=== PATIENT | female | born 1945 | race Caucasian/White ===

== ENCOUNTER → 2016-08-23 | Outpatient (CLI) | payer OTHER ==
[~2016-08-23] MED LIST: ATOR-26 PO; BNC40 PO; CALC-445 PO; DABI150C PO; DILT120C PO; LOSA1TAB PO; LSX/40 PO; NRV5 PO; REGADENOSON 0.4 MG/5 ML SYR ONE; SOTA120T PO
--- NOTE | 2016-08-23 22:09 | MYOCARDIAL PERFUSION SCAN ---
TIME: 1955 p.m. ORDERING PHYSICIAN: Dr. Peña. PRIMARY CARE PHYSICIAN: Dr. Adan Joshua. PROCEDURE: 1. Myocardial perfusion study performed in multiple views/images. 2. Lexiscan stress ECG. INDICATIONS: 1. Chest pain. 2. Dyspnea on exertion. 3. Atrial fibrillation. CONSENT: Informed written consent was obtained. DATE OF PROCEDURE: 08/23/2016. PROCEDURAL DETAILS: For the stress portion of the study, Lexiscan 0.4 mg was intravenously administered over 10-15 seconds followed by a saline flush. This was followed by 32.8 mCi of technetium-99m Cardiolite injected intravenously at 1340 p.m. on 08/23/2016. Thirty minutes following the injection, imaging of the heart was performed in multiple projections. For the rest portion of the study, 11 mCi of technetium-99m Cardiolite was injected intravenously at 11:30 a.m. on the same day. One hour following the injection, imaging of the heart was performed in the same projections. ELECTROCARDIOGRAM AND VITALS: Resting ECG demonstrated normal sinus rhythm at 63 beats per minute. Incomplete right bundle-branch block. Lexiscan ECG demonstrated no significant ST changes. No arrhythmia. There was Lexiscan-induced shortness of breath. No chest pain reported. Maximum heart rate was 99 beats per minute, representing 66% maximum predicted heart rate. Resting blood pressure was 165/89 mmHg, which was also the maximum blood pressure. FINDINGS: Rotating raw imaging demonstrated no significant motion artifact. There was no significant lung uptake. Heart size appeared normal. Myocardial perfusion was normal without a significant reversible or fixed defect. Ejection fraction was 84%. Wall motion was normal. There was no significant transient ischemic dilation. IMPRESSION: 1. No significant ischemic changes or evidence of prior infarct. 2. No chest pain. 3. Non-diagnostic Lexiscan electrocardiogram. 4. Normal wall motion. 5. Hyperdynamic left ventricular systolic function with an EF of 84%.
== END | disposition home or self-care (01) ==
LOC: C.NUCL 10:49
PROVIDERS: ATTEND Internal Medicine Cardiovascular Disease
DX: I48.91 Unspecified atrial fibrillation (principal); R07.89 Other chest pain; R06.09 Other forms of dyspnea

== ENCOUNTER → 2016-09-04 | Outpatient (CLI) | payer OTHER ==
[~2016-09-04] MED LIST changes: -REGADENOSON 0.4 MG/5 ML SYR ONE
[2016-09-04 13:10] LABS: BASO % 0.5 %; BASO ABS # 0.03 K/uL (0-0.2); COMPLETE YES; EOS % 4.5 %; HEMATOCRIT 40.2 % (37-47); IG% 0.5 %; LYMPH % 31.6 %; LYMPH ABS # 1.74 K/uL (1.2-3.4); MEAN CORPUSCULAR HEMOGLOBIN 28.1 pg (25-34); MEAN CORPUSCULAR HGB CONC 33.1 g/dl (32-36); MEAN PLATELET VOLUME 9.7 fL (7.4-10.4); MONO % 7.4 %; NEUT % 55.5 %; PLATELET COUNT 278 K/uL (130-400); RED BLOOD COUNT 4.73 M/uL (4.2-5.4); WHITE BLOOD COUNT 5.51 K/uL (4.8-10.8)
[2016-09-04 13:45] LABS: AST/SGOT 19 U/L (15-37); BLOOD UREA NITROGEN 9 mg/dl (7-18); CALCIUM 9.1 mg/dl (8.5-10.1); CARBON DIOXIDE 29 mmol/L (21-32); CHLORIDE 105 mmol/L (98-107); CREATININE 0.61 mg/dl (0.60-1.20); GLUCOSE 93 mg/dl (70-99); HDL CHOLESTEROL 50 mg/dl; POTASSIUM 4.6 mmol/L (3.5-5.1); SODIUM 141 mmol/L (136-145)
[2016-09-04 13:58] LABS: ALT/SGPT 20 U/L (12-78); CHOLESTEROL 129 mg/dl (0-200); CHOLESTEROL/HDL RATIO 2.6; LDL CHOLESTEROL CALCULATED 60 mg/dl; TRIGLYCERIDES 96 mg/dl (0-150); VERY LOW DENSITY LIPOPROT CALC 19 mg/dl
== END | disposition home or self-care (01) ==
LOC: C.LABMFLN 07:48
PROVIDERS: ATTEND Family Medicine
DX: I48.91 Unspecified atrial fibrillation (principal); I10 Essential (primary) hypertension; E78.5 Hyperlipidemia, unspecified; G47.30 Sleep apnea, unspecified

== ENCOUNTER → 2017-03-13 | Outpatient (CLI) | payer OTHER ==
[2017-03-13 13:27] LABS: BASO % 0.4 %; BASO ABS # 0.02 K/uL (0-0.2); COMPLETE YES; EOS % 4.9 %; HEMATOCRIT 41.3 % (37-47); IG% 0.6 %; LYMPH ABS # 1.75 K/uL (1.2-3.4); MEAN CELL VOLUME 88.4 fL (80-100); MEAN CORPUSCULAR HGB CONC 30.5 g/dl (32-36); MEAN PLATELET VOLUME 9.8 fL (7.4-10.4); MONO % 7.9 %; NEUT % 53.2 %; PLATELET COUNT 343 K/uL (130-400); RED BLOOD COUNT 4.67 M/uL (4.2-5.4); WHITE BLOOD COUNT 5.31 K/uL (4.8-10.8)
[2017-03-13 15:21] LABS: ALT/SGPT 25 U/L (12-78); AST/SGOT 22 U/L (15-37); BLOOD UREA NITROGEN 8 mg/dl (7-18); BUN/CREATININE RATIO 11.1 (10-20); CALCIUM 9.3 mg/dl (8.5-10.1); CARBON DIOXIDE 30 mmol/L (21-32); CHLORIDE 106 mmol/L (98-107); CHOLESTEROL 143 mg/dl (0-200); CHOLESTEROL/HDL RATIO 3.9; CREATININE 0.73 mg/dl (0.60-1.20); GLUCOSE 104 mg/dl (70-99); HDL CHOLESTEROL 37 mg/dl; LDL CHOLESTEROL CALCULATED 76 mg/dl; POTASSIUM 4.8 mmol/L (3.5-5.1); SODIUM 140 mmol/L (136-145); TOTAL IRON BINDING CAPACITY 322 mcg/dl (250-450); TRIGLYCERIDES 150 mg/dl (0-150); VERY LOW DENSITY LIPOPROT CALC 30 mg/dl
--- NOTE | 2017-03-21 11:30 | CODING QUERY MEDICAL NECESSITY ---
SUPPORTING DIAGNOSIS NEEDED Dr. Joshua, A supporting diagnosis is required for the test/procedure performed on this patient in order for us to be reimbursed by the patient's insurance. Please provide a supporting diagnosis for the following test/procedure listed below next to the test name along with your signature. *If there is no additional diagnosis for this patient that would support the following test/procedure please document that below next to the test/procedure. Test(s)/Procedure(s) that require a supporting diagnosis: * ([id number]) B12 VITAMIN LEVEL DIAGNOSIS: * ([id number]) FOLATE LEVEL DIAGNOSIS: DATE OF SERVICE: 03/13/17 Provider Signature: Date: Thank you Jairo Archibald [facility] Information Management Once completed, please kindly fax back to [phone] For questions please call [phone]
== END | disposition home or self-care (01) ==
LOC: C.LABMFLN 11:17
PROVIDERS: ATTEND Family Medicine
DX: E78.5 Hyperlipidemia, unspecified (principal); I10 Essential (primary) hypertension; D50.9 Iron deficiency anemia, unspecified

== ENCOUNTER → 2017-08-04 | Outpatient (CLI) | payer OTHER ==
[2017-08-04 12:49] LABS: BASO % 0.2 %; BASO ABS # 0.02 K/uL (0-0.2); EOS % 1.5 %; EOS ABS # 0.16 K/uL (0-0.5); HEMATOCRIT 41.1 % (37-47); HEMOGLOBIN 13.3 g/dL (12.0-16.0); IG# 0.15 K/uL (0.00-0.02); LYMPH % 39.5 %; LYMPH ABS # 4.12 K/uL (1.2-3.4); MEAN CELL VOLUME 86.7 fL (80-100); MEAN CORPUSCULAR HEMOGLOBIN 28.1 pg (25-34); MEAN CORPUSCULAR HGB CONC 32.4 g/dl (32-36); MEAN PLATELET VOLUME 9.9 fL (7.4-10.4); MONO % 7.1 %; MONO ABS # 0.74 K/uL (0.11-0.59); NEUT % 50.3 %; NEUT ABS # 5.25 K/uL (1.4-6.5); PLATELET COUNT 436 K/uL (130-400); RED CELL DISTRIBUTION WIDTH CV 13.3 % (11.5-14.5); RED CELL DISTRIBUTION WIDTH SD 42.4 fL (36.4-46.3); WHITE BLOOD COUNT 10.44 K/uL (4.8-10.8)
[2017-08-04 13:26] LABS: ALT/SGPT 20 U/L (12-78); AST/SGOT 15 U/L (15-37); BLOOD UREA NITROGEN 13 mg/dl (7-18); CARBON DIOXIDE 32 mmol/L (21-32); CHOLESTEROL 133 mg/dl (0-200); GLUCOSE 96 mg/dl (70-99); POTASSIUM 4.1 mmol/L (3.5-5.1); SODIUM 139 mmol/L (136-145)
[2017-08-04 13:29] LABS: LDL CHOLESTEROL CALCULATED 54 mg/dl
== END | disposition home or self-care (01) ==
LOC: C.LABMFLN 09:51
PROVIDERS: ATTEND Family Medicine
DX: I48.91 Unspecified atrial fibrillation (principal); I10 Essential (primary) hypertension; E78.5 Hyperlipidemia, unspecified; D50.9 Iron deficiency anemia, unspecified

== ENCOUNTER → 2017-10-09 | Outpatient (CLI) | payer OTHER ==
[~2017-10-09] MED LIST changes: +DILT-213 PO; -DILT120C PO
[2017-10-09 17:54] LABS: BASO % 0.6 %; BASO ABS # 0.04 K/uL (0-0.2); EOS % 3.8 %; EOS ABS # 0.26 K/uL (0-0.5); HEMATOCRIT 45.1 % (37-47); HEMOGLOBIN 14.7 g/dL (12.0-16.0); IG# 0.03 K/uL (0.00-0.02); LYMPH % 24.2 %; LYMPH ABS # 1.66 K/uL (1.2-3.4); MEAN CELL VOLUME 88.6 fL (80-100); MEAN CORPUSCULAR HEMOGLOBIN 28.9 pg (25-34); MEAN CORPUSCULAR HGB CONC 32.6 g/dl (32-36); MEAN PLATELET VOLUME 10.5 fL (7.4-10.4); MONO % 5.4 %; MONO ABS # 0.37 K/uL (0.11-0.59); NEUT % 65.6 %; NEUT ABS # 4.49 K/uL (1.4-6.5); PLATELET COUNT 377 K/uL (130-400); RED CELL DISTRIBUTION WIDTH CV 13.6 % (11.5-14.5); RED CELL DISTRIBUTION WIDTH SD 44.2 fL (36.4-46.3); WHITE BLOOD COUNT 6.85 K/uL (4.8-10.8)
[2017-10-09 18:22] LABS: BLOOD UREA NITROGEN 9 mg/dl (7-18); CALCIUM 9.3 mg/dl (8.5-10.1); CARBON DIOXIDE 30 mmol/L (21-32); CREATININE 0.68 mg/dl (0.60-1.20); GLUCOSE 99 mg/dl (70-99); POTASSIUM 4.4 mmol/L (3.5-5.1); SODIUM 140 mmol/L (136-145)
== END | disposition home or self-care (01) ==
LOC: C.LABMFLN 11:44
PROVIDERS: ATTEND Family Medicine
DX: I10 Essential (primary) hypertension (principal); R06.00 Dyspnea, unspecified; R07.89 Other chest pain

== ENCOUNTER → 2017-10-31 | Outpatient (CLI) | payer OTHER ==
[~2017-10-31] MED LIST changes: +REGADENOSON 0.4 MG/5 ML SYR ONE
--- NOTE | 2017-10-31 10:25 | DIAGNOSTIC IMAGING REPORT ---
CT OF THE CHEST WITHOUT IV CONTRAST CLINICAL HISTORY: Lung nodule. Abnormal chest radiograph. Dyspnea. Coronary artery disease. COMPARISON STUDY: Chest radiograph July 11, 2015. CT DOSE: 590.33 mGycm TECHNIQUE: Axial images of the chest were obtained without IV contrast. Images were reviewed in the axial, sagittal, and coronal planes. IV contrast was not administered for this examination. A dose lowering technique was utilized adhering to the principles of ALARA. FINDINGS: No enlarged axillary, mediastinal or hilar lymph nodes are present. The heart is mildly enlarged. There is extensive coronary artery calcification. Note is made of moderate dilatation of the central pulmonary arteries with the main pulmonary artery measuring 3.5 cm. Central airways are patent. Linear opacities within the lungs favor atelectasis. There is no consolidation to suggest pneumonia. There is no pneumothorax or pleural effusion. There is a small fat-containing right-sided Bochdalek hernia. Bony thorax is unremarkable. There is mild scarring within the midpole of the left kidney. There may be a duplicated left collecting system. There is slight prominence of the left upper renal collecting system without heber hydronephrosis. A few diverticula if the second duodenum are noted. IMPRESSION: 1. Moderate dilatation of the central pulmonary arteries which suggests pulmonary arterial hypertension. 2. Mild cardiomegaly and extensive coronary artery calcification. 3. Linear opacities suggestive of atelectasis. No acute intrathoracic findings. Electronically signed by: Jaime Gregory M.D. 10/31/2017 10:24 AM Dictated Date/Time: 10/31/2017 10:16 AM
--- NOTE | 2017-11-03 10:07 | MYOCARDIAL PERFUSION SCAN ---
ONE-DAY NUCLEAR MEDICINE TECHNETIUM-99M CARDIOLITE MYOCARDIAL PERFUSION SCAN CLINICAL HISTORY: The patient has a history of nonobstructive coronary artery disease and has been experiencing progressive exertional dyspnea. COMPARISON: None. TECHNIQUE: For the stress portion of the study, 31.2 mCi of Technetium 99 m Cardiolite IV was injected at 1:25 p.m. on 10/31/2017. Thirty minutes following the injection, imaging of the heart was performed in multiple projection. For the rest portion of the study, 10.8 mCi of a Technetium 99 m Cardiolite was injected IV at 11:15 a.m. One hour following the injection, imaging of the heart was performed in the same projections. For the stress portion of the study, 0.4 mg of Lexiscan was injected intravenously as per protocol. The patient did not experience chest discomfort. Baseline EKG noted sinus rhythm with a left axis deviation. There were no ST segment changes seen during the infusion. Following the study, patient was hemodynamically stable without complaints. FINDINGS: The short axis, vertical long axis, horizontal long axis images were reviewed in detail. There is normal tracer uptake at both stress and rest. This excludes a prior myocardial infarction and evidence of stress-induced myocardial ischemia. The left ventricle demonstrates hyperdynamic systolic function with an ejection fraction of greater than 70%. There are no wall motion abnormalities. IMPRESSION: 1. No scintigraphic evidence of a prior myocardial infarction or stress-induced myocardial ischemia. 2. No Lexiscan-induced chest pain. 3. No Lexiscan-induced EKG change 4. Hyperdynamic left ventricular ejection fraction of greater than 70%. No wall motion abnormalities.
== END | disposition home or self-care (01) ==
LOC: C.CTS 09:50
PROVIDERS: ATTEND Family Medicine
DX: R91.1 Solitary pulmonary nodule (principal); I25.10 Atherosclerotic heart disease of native coronary artery without angina pectoris; R06.00 Dyspnea, unspecified

== ENCOUNTER → 2017-12-01 | Outpatient (CLI) | payer OTHER ==
[~2017-12-01] MED LIST changes: -REGADENOSON 0.4 MG/5 ML SYR ONE
[2017-12-01 19:26] LABS: BLOOD UREA NITROGEN 9 mg/dl (7-18); CALCIUM 8.9 mg/dl (8.5-10.1); CARBON DIOXIDE 31 mmol/L (21-32); CREATININE 0.76 mg/dl (0.60-1.20); GLUCOSE 98 mg/dl (70-99); POTASSIUM 4.7 mmol/L (3.5-5.1); SODIUM 139 mmol/L (136-145)
== END | disposition home or self-care (01) ==
LOC: C.LABMFLN 13:54
PROVIDERS: ATTEND Family Medicine
DX: I10 Essential (primary) hypertension (principal)

== ENCOUNTER 2019-01-11 02:16 | Inpatient (IN) ==
[2019-01-11 03:59] LABS: Basophils # (auto) 0.01 K/uL (0-0.2); Basophils % (auto) 0.1 %; Eosinophils # (auto) 0.12 K/uL (0-0.5); Eosinophils % (auto) 0.9 %; Hemoglobin 12.3 g/dL (12.0-16.0); Immature Granulocytes # (auto) 0.07 K/uL (0.00-0.02); Immature Granulocytes % (auto) 0.5 %; Lymphocytes # (auto) 0.98 K/uL (1.2-3.4); Lymphocytes % (auto) 7.2 %; Mean Corpuscular Hgb Conc 33.2 g/dL (32-36); Mean Corpuscular Volume 85.3 fL (80-100); Mean Platelet Volume 9.6 fL (7.4-10.4); Monocytes # (auto) 0.65 K/uL (0.11-0.59); Monocytes % (auto) 4.8 %; Neutrophils # (auto) 11.83 K/uL (1.4-6.5); Neutrophils % (auto) 86.5 %; Platelet Count 288 K/uL (130-400); RDW Coefficient of Variation 13.3 % (11.5-14.5); RDW Standard Deviation 41.2 fL (36.4-46.3); Red Blood Count 4.34 M/uL (4.2-5.4); White Blood Count 13.66 K/uL (4.8-10.8)
[2019-01-11 04:18] LABS: Calcium 8.4 mg/dl (8.5-10.1); Creatinine Clr Calc Pharmacy 57.1 ml/min; Est GFR (African American) 96.3; Est GFR (Non-African American) 83.1; Potassium 3.9 mmol/L (3.5-5.1)
[2019-01-11 04:36] LABS: INR 1.1 (0.9-1.1); Partial Thromboplastin Ratio 1.4; Partial Thromboplastin Time 37.4 Seconds (21.0-31.0); Prothrombin Time 11.4 Seconds (9.0-12.0)
[2019-01-11] MEDS ORDERED: DESMOPRESSIN ACETATE 13 MCG in SODIUM CHLORIDE 0.9% 50 ML IV SCH (06:00)
--- NOTE | 2019-01-11 06:03 | History & Physical Report ---
Date of Service January 11, 2019 Assessment & Plan (1) Rectal bleed: Constipation/persistent rectal bleeding status post manual disimpaction by patient/on Pradaxa- N.p.o. except essential medications NSS + KCl 20 mEq 100 mils per hour. H&H every 6 hours for the next 24 hours. Giving DDAVP IV x1. Consult general surgery Dr. Hall, who was contacted by the ED already. Patient reports having a similar type of bleeding, but not as bad as this time, several years ago, that she went surgery for hemorrhoids with Dr. Saul. Present on Admission?: Yes (2) Constipation: We will more aggressively work on constipation once the rectal bleeding has been controlled. Present on Admission?: Yes (3) Anticoagulant long-term use: Holding Pradaxa. Given DDAVP. Present on Admission?: Yes (4) CAD (coronary artery disease), [place] coronary artery: CAD/hypertension/atrial fibrillation- Recent cardiac catheterization did not show any need for intervention. Continue sotalol 100 mg p.o. twice daily. Hold irbesartan, diltiazem HCl p.o. and Pradaxa. Cardizem 10 mg IV every 4 hours as needed for heart rate greater than 110 or systolic blood pressure greater than 160. Present on Admission?: Yes (5) Atrial fibrillation: See above Present on Admission?: Yes (6) Hyperlipidemia LDL goal <70: On problem list, but not currently on medication. Present on Admission?: Yes (7) Pulmonary hypertension: On no overt treatment. Present on Admission?: Yes History of Present Illness Chief Complaint: The patient presents to the emergency department after approximately 8-1/2 hours of rectal bleeding after she tried to manually disimpact herself while on the commode around 9:00 this evening. Primary Care Provider: Adan Joshua MD The patient is a 73-year-old female with a past medical history including atrial fibrillation, CAD in [place] artery, pulmonary hypertension, dyspnea, hyperlipidemia, hypertension, CHF, osteoarthritis and previous history of rectal bleeding due to hemorrhoids, presents to the emergency department with approximately 8 hours of rectal bleeding after she tried to manually disimpact herself with fingers with sharp fingernails on the edge. She continues to have bright red blood independent of bowel movements. She reports having had general surgeon Dr. Saul perform surgery on bleeding hemorrhoids a few years ago. She just underwent a cardiac catheterization 3 days ago, which was normal. She is on Pradaxa 150 mg p.o. twice daily for long-term anticoagulation for atrial fibrillation. Allergies Allergy/AdvReac Type Severity Reaction Status Date / Time clarithromycin [From Biaxin] Allergy Unknown Verified 01/11/19 05:07 hydrochlorothiazide Allergy Unknown Verified 01/11/19 05:07 [From Prinzide] lisinopril [From Prinzide] Allergy Unknown Verified 01/11/19 05:07 Home Medications Home Medications Medication Instructions Recorded Confirmed Type diltiazem HCl 300 mg PO QAM #0 07/11/15 01/11/19 History Osteo Bi-Flex Triple Strength 1 tab PO BID 01/07/19 01/11/19 History cholecalciferol (vitamin D3) 1,000 unit PO DAILY 01/07/19 01/11/19 History [Vitamin D3] irbesartan 300 mg PO QAM 01/07/19 01/11/19 History nitroglycerin [Nitrostat] 0.4 mg SUBLINGUAL DIRECTED 01/07/19 01/11/19 History calcium carbonate-vitamin D3 1 tab PO DAILY 01/11/19 01/11/19 History [Calcium 600 + D(3)] dabigatran etexilate [Pradaxa] 150 mg PO AMPM 01/11/19 01/11/19 History furosemide [Lasix] 60 mg PO QAM 01/11/19 01/11/19 History sotalol 120 mg PO AMPM 01/11/19 01/11/19 History Past Med/Surg History Medical History Chest pain Family History Other No significant family history Social History Beliefs That Will Affect Care: None Current Living Situation: Spouse Feels Safe at Home: Yes Smoking Status: Never smoker Hx Alcohol Use: No Hx Substance Use: No Review of Systems Review of Systems: The patient denies chest pain, palpitations, shortness of breath, dyspnea on exertion, cough, lower extremity swelling, sore throat, fevers, chills, sweats, weight change, fatigue, nausea, vomiting, diarrhea , constipation, abdominal pain, pelvic pain, blood in urine, dysuria, urinary frequency or urgency, lightheadedness, dizziness, headache, memory loss, loss of consciousness, rash, imbalance, focal or generalized weakness, numbness or tingling in arms or legs, generalized arthralgias or myalgias, back or neck pain, or night sweats. The review of systems is otherwise negative other than for that already noted above, and at least 10 systems have been reviewed. Physical Exam Physical Exam: The patient is awake, alert and oriented 3, well developed and well nourished, normocephalic and atraumatic, lying in bed and in no acute distress. HEENT--PERRL, EOMI, mucous membranes and oropharynx dry. Neck--supple. No JVD. No bruits. Thyroid normal, trachea midline, no adenopathy. Heart--normal S1 and S2. No murmurs, rubs or gallops. Lungs--clear bilaterally, no respiratory distress, no accessory muscle use. Abdomen--normal bowel sounds and soft. Nontender. Mildly distended but soft. Extremities--no cyanosis or clubbing. No edema. There are good distal pulses b/l. Dermatologic--normal skin turgor, normal color, no abnormal lymph nodes, no rash. Neurologic--cranial nerves II through XII grossly intact. Rheumatologic--normal range of motion. Psychiatric--normal affect. Results & Data Vital Signs (Past 12 Hours) Vital Signs Temp Pulse Pulse Resp BP BP Pulse Ox 01/11/19 05:52 90 18 143/85 H 94 01/11/19 03:57 83 18 115/100 93 01/11/19 02:20 98.4 F 94 H 16 148/84 H 94 Laboratory Results Laboratory Results WBC 13.66 K/uL (4.8-10.8) H 01/11/19 03:50 RBC 4.34 M/uL (4.2-5.4) 01/11/19 03:50 Hgb 12.3 g/dL (12.0-16.0) 01/11/19 03:50 Hct 37.0 % (37-47) 01/11/19 03:50 MCV 85.3 fL (80-100) 01/11/19 03:50 MCH 28.3 pg (25-34) 01/11/19 03:50 MCHC 33.2 g/dL (32-36) 01/11/19 03:50 RDW Std Deviation 41.2 fL (36.4-46.3) 01/11/19 03:50 RDW Coeff of Emiliano 13.3 % (11.5-14.5) 01/11/19 03:50 Plt Count 288 K/uL (130-400) 01/11/19 03:50 MPV 9.6 fL (7.4-10.4) 01/11/19 03:50 Immature Gran % (Auto) 0.5 % 01/11/19 03:50 Neut % (Auto) 86.5 % 01/11/19 03:50 Lymph % (Auto) 7.2 % 01/11/19 03:50 Dodge % (Auto) 4.8 % 01/11/19 03:50 Eos % (Auto) 0.9 % 01/11/19 03:50 Baso % (Auto) 0.1 % 01/11/19 03:50 Immature Gran # (Auto) 0.07 K/uL (0.00-0.02) H 01/11/19 03:50 Neut # (Auto) 11.83 K/uL (1.4-6.5) H 01/11/19 03:50 Lymph # (Auto) 0.98 K/uL (1.2-3.4) L 01/11/19 03:50 Dodge # (Auto) 0.65 K/uL (0.11-0.59) H 01/11/19 03:50 Eos # (Auto) 0.12 K/uL (0-0.5) 01/11/19 03:50 Baso # (Auto) 0.01 K/uL (0-0.2) 01/11/19 03:50 PT 11.4 Seconds (9.0-12.0) 01/11/19 04:14 INR 1.1 (0.9-1.1) 01/11/19 04:14 APTT 37.4 Seconds (21.0-31.0) H 01/11/19 04:14 PTT Ratio 1.4 01/11/19 04:14 Sodium 137 mmol/L (136-145) 01/11/19 03:50 Potassium 3.9 mmol/L (3.5-5.1) 01/11/19 03:50 Chloride 103 mmol/L (98-107) 01/11/19 03:50 Carbon Dioxide 26 mmol/L (21-32) 01/11/19 03:50 Anion Gap 8.0 (3-11) 01/11/19 03:50 BUN 17 mg/dl (7-18) 01/11/19 03:50 Creatinine 0.72 mg/dl (0.6-1.2) 01/11/19 03:50 Est Cr Clr Drug Dosing 57.1 ml/min 01/11/19 03:50 Est GFR ( Amer) 96.3 01/11/19 03:50 Est GFR (Non-Af Amer) 83.1 01/11/19 03:50 BUN/Creatinine Ratio 24.0 (10-20) H 01/11/19 03:50 Glucose 123 mg/dl (70-99) H 01/11/19 03:50 Calcium 8.4 mg/dl (8.5-10.1) L 01/11/19 03:50 Code Status & VTE Plan Code Status Full code VTE Prophylaxis Plan VTE Prophylaxis will be ordered: Yes PG Care Time/CCT Total # of Minutes Spent Total Time Spent with Patient: Total time spent is greater than 50% in coordination of care (as documented) at patient's floor/unit and/or counseling patient: (1) Constipation Constipation type: unspecified constipation type Qualified Code(s): K59.00 - Constipation, unspecified
--- NOTE | 2019-01-11 06:11 | Emergency Department Note ---
Entered by Melo Mcclelland acting as a scribe for Enrico Oh MD ED Provider Note Name: Lakia Richardson Age: 73, female Arrives Via: Walk in Informant: Patient CC: Constipation HPI: The patient is a 73 year old female who presents to the emergency department with complaints of constant constipation beginning two days ago. The patient states that she had a cardiac catheterization procedure done two days ago. She notes that she has been constipated since. She reports that she tried using her fingers to break up the stool at 2100 yesterday, and she states that she has been bleeding since. She also complains of abdominal pain. She denies any nausea, vomiting, and urinary symptoms. She notes that she is on Pridaxa. ROS: See above HPI for pertinent positives & negatives. A total of 10 systems reviewed and were otherwise negative. Past Medical History: None Past Surgical History: Cardiac catheterization Family History: No significant family history Social History: Lives with spouse, never smoker, does not drink alcohol, does not use drugs Home Medications: Please see medication list Allergies: Clarithromycin, hydrochlorothiazide, lisinopril Physical: Vitals: BP 115/100, Pulse 83, Resp 18, Temp 98.4 F, O2 Sat 93 Exam: GENERAL: Patient is well appearing and in no acute distress. EYES: No scleral icterus, unremarkable pupils. ENT: Mucous membranes moist, no nasal congestion. NECK: No masses appreciated, no meningismus, trachea is midline. RESPIRATORY: No dyspnea. Clear to auscultation and equal bilaterally. No wheeze, no rhonchi. CARDIOVASCULAR: Regular rate and rhythm. No murmurs, rubs, gallops appreciated. GASTROINTESTINAL: Abdomen soft, non-tender, no peritonitis. No masses appreciated. Mildly distended abdomen. Hypoactive bowel sounds. BACK: No midline tenderness, no CVA tenderness RECTAL: Small towel wedged between butt cheeks that is soaked in blood which when removed revealed large nontender hemorrhoids externally, normal rectal tone, when area is cleaned there is continuous bleeding from the rectum without a clear laceration able to be visualized, I removed a grapefruit sized amount of stool which was brown streaked with a large amount of red blood. EXTREMITIES: Normal motion all extremities, no cyanosis. 3+ edema to the bilateral legs. NEUROLOGIC: Alert and oriented, no acute motor or sensory deficits, no focal weakness, cranial nerves grossly intact. SKIN: No rash, no jaundice, no diaphoresis. ED Course: Prior Medical Record, Triage/Nursing Notes, Medications, Allergies reviewed by Me 0230: The patient was evaluated in room A3. A complete history and physical exam was performed. 0410: Nursing is attempting to collect the patient's labs. She was a difficult stick but she does have an IV. 0432: I reevaluated and updated the patient. She had a large bowel movement and filled the toilet with blood. She is still having some bleeding but is hemodynamically stable. 0438: I discussed the patient's case with Branden Hernandez. He suggests discussing the patient's case with general surgery. 0443: I discussed the patient's case [place] Dr. Isabel Flaherty [facility] He suggests bringing the patient into medicine and treating her as a GI bleed. 0536: Upon reevaluation, the patient is stable. I discussed the findings and the treatment plan with the patient. She expresses agreement and understanding. I spoke with Dr. Chowdhury of the [facility]. The patient will be evaluated for further management. Vital Signs: reviewed and remarkable for wnl Labs: Reviewed and remarkable for Hgb 12 down from 14 2 weeks ago. Interventions: saline lock Imaging: X ray results are stated below per my interpretation: KUB: 1 view: Diffuse constipation, no overt obstruction. Consults: 0438: I discussed the patient's case with Branden Hernandez. He suggests discussing the patient's case with general surgery. 0443: I discussed the patient's case with Dr. Isabel Flaherty [facility]. He suggests bringing the patient into medicine and treating her as a GI bleed. 0536: I reviewed the patient's case with Dr. Chowdhury - Hospitalist [facility] He will evaluate the patient for further management. Blood pressure: Normal. No Referral necessary Disposition: hospitalization. Differentials: Differential: Hemorrhoidal bleeding, rectal laceration, Diverticulitis, AVM, Coagulopathy, Colitis, Malignancy, Upper GI bleed, Fissure, amongst other pathologies entertained. Medical Decision Makin yr old female who is on Pradaxa and has been constipated over the last few days. She recently had her nails done and thus when she tried to manually dis- impact herself she appears to have lacerated something, suspect an internal hemorrhoid given the number/size of external hemorrhoids she has and exam findings. No evidence of bowel perforation at this time. She has brown stool thus I doubt upper GI source and without other symptoms unlikely diverticulitis, though this could be low diverticular bleed as well. Stool with bleeding on multiple BMs (which she is now having given fecal impaction resolved). On exam she has mild continuous bleeding but is not exsaunginatng. Vitals stable. Reviewed with GI, then Gen Surg and agree with coming in for further monitoring, hold Pradaxa and if continued or worsening anemia will need intervention further. Hospitalist down to evaluate further. Impression: Rectal bleed, constipation, anticoagulant use Enrico Oh MD The scribe's documentation has been prepared under my direction and personally reviewed by me in its entirety. I confirm that the note above accurately reflects all work, treatment, procedures, and medical decision making performed by me. Impression & Plan Rectal bleed, Constipation, Anticoagulant long-term use Past Med/Surg History Medical History Chest pain Family History Other No significant family history Social History Beliefs That Will Affect Care: None Current Living Situation: Spouse Feels Safe at Home: Yes Smoking Status: Never smoker Hx Alcohol Use: No Hx Substance Use: No Results & Data Vital Signs Vital Signs - 24 hr 01/11/19 02:20 01/11/19 03:57 01/11/19 05:52 Temperature 36.9 C Temperature Source Oral Sepsis Recent Fever Within 48 Hours No Sepsis New/Unexplained Change in Mental Status No Sepsis Action Taken by Nursing No Action Required Pulse Rate 94 H Pulse Rate [Finger] 83 90 Respiratory Rate 16 18 18 Blood Pressure 148/84 H Blood Pressure [Left Arm] 115/100 143/85 H Blood Pressure Mean 105 Blood Pressure Mean [Left Arm] 105 104 Blood Pressure Position Sitting Pulse Oximetry 94 93 94 Oxygen Delivery Method Room Air Room Air Room Air Home Medications Current Medication List: was personally reviewed by me Laboratory Data Attestation: I reviewed the patient's lab results. Result diagrams: 01/11/19 03:50 01/11/19 03:50 Lab Results 01/11/19 01/11/19 01/11/19 Range/Units 03:50 03:50 04:14 WBC 13.66 H (4.8-10.8) K/uL RBC 4.34 (4.2-5.4) M/uL Hgb 12.3 (12.0-16.0) g/dL Hct 37.0 (37-47) % MCV 85.3 (80-100) fL MCH 28.3 (25-34) pg MCHC 33.2 (32-36) g/dL RDW Std Deviation 41.2 (36.4-46.3) fL RDW Coeff of Emiliano 13.3 (11.5-14.5) % Plt Count 288 (130-400) K/uL MPV 9.6 (7.4-10.4) fL Immature Gran % (Auto) 0.5 % Neut % (Auto) 86.5 % Lymph % (Auto) 7.2 % Bertie % (Auto) 4.8 % Eos % (Auto) 0.9 % Baso % (Auto) 0.1 % Immature Gran # (Auto) 0.07 H (0.00-0.02) K/uL Neut # (Auto) 11.83 H (1.4-6.5) K/uL Lymph # (Auto) 0.98 L (1.2-3.4) K/uL Bertie # (Auto) 0.65 H (0.11-0.59) K/uL Eos # (Auto) 0.12 (0-0.5) K/uL Baso # (Auto) 0.01 (0-0.2) K/uL PT 11.4 (9.0-12.0) Seconds INR 1.1 (0.9-1.1) APTT 37.4 H (21.0-31.0) Seconds PTT Ratio 1.4 Sodium 137 (136-145) mmol/L Potassium 3.9 (3.5-5.1) mmol/L Chloride 103 (98-107) mmol/L Carbon Dioxide 26 (21-32) mmol/L Anion Gap 8.0 (3-11) BUN 17 (7-18) mg/dl Creatinine 0.72 (0.6-1.2) mg/dl Est Cr Clr Drug Dosing 57.1 ml/min Est GFR ( Amer) 96.3 Est GFR (Non-Af Amer) 83.1 BUN/Creatinine Ratio 24.0 H (10-20) Glucose 123 H (70-99) mg/dl Calcium 8.4 L (8.5-10.1) mg/dl Discharge Plan Visit Data Chief Complaint: Constipation Stated Complaint: CONSTIPATED ED Provider: Enrico Oh Discharge Problem: Rectal bleed, Constipation, Anticoagulant long-term use Patient Disposition: Being Evaluated by Hospitalist Forms Stand Alone Forms: My [facility] Prescriptions Prescriptions: No Action diltiazem HCl 300 mg Capsule,Extended Release 24 Hr 300 mg PO QAM Qty: 0 RF: 3 nitroglycerin [Nitrostat] 0.4 mg Tablet, Sublingual 0.4 mg sublingual DIRECTED RF: 0 irbesartan 300 mg Tablet 300 mg PO QAM RF: 0 cholecalciferol (vitamin D3) [Vitamin D3] 1,000 unit Capsule 1,000 unit PO DAILY RF: 0 Osteo Bi-Flex Triple Strength 750 mg-644 mg- 30 mg-1 mg Tablet 1 tab PO BID RF: 0 Pradaxa 150 mg capsule 150 mg PO AMPM RF: 0 furosemide [Lasix] 40 mg tablet 60 mg PO QAM RF: 0 sotalol 120 mg tablet 120 mg PO AMPM RF: 0 calcium carbonate-vitamin D3 [Calcium 600 + D(3)] 600 mg(1,500mg) -400 unit Tablet 1 tab PO DAILY RF: 0 Referrals Referrals: Adan Joshua MD [Primary Care Provider] - Discharge Problem: Constipation Qualifiers: Constipation type: unspecified constipation type Qualified Code(s): K59.00 - Constipation, unspecified The scribe's documentation has been prepared under my direction and personally reviewed by me in its entirety. I confirm that the note above accurately reflects all work, treatment, procedures, and medical decision making performed by me.
[2019-01-11] MEDS ORDERED: DESMOPRESSIN ACETATE 24 MCG in SODIUM CHLORIDE 0.9% 50 ML IV ONE (06:15)
--- NOTE | 2019-01-11 06:36 | XRay Report ---
KUB HISTORY: Acute generalized abdominal pain with constipation constipation COMPARISON: Chest radiographs 01/04/2019 FINDINGS: The bowel gas pattern is non-obstructive. Moderate volume of formed stool is noted througho ut the entirety of the colon. There is no organomegaly. No renal calculi. No ureteral calculi. [place] sted vascular calcifications of the pelvis. 2 mm round calcification inferior to the right L5 transve rse process, nonspecific. No pneumoperitoneum or pneumatosis. No fracture. IMPRESSION: 1. Nonobstructive bowel gas pattern. 2. Moderate constipation. Electronically signed by: Harvey Gaona M.D. 01/11/2019 6:35 AM
[2019-01-11] MEDS ORDERED: ACETAMINOPHEN 1000 MG/100 ML IV IV PRN (07:19)
[2019-01-11] MEDS ORDERED: ONDANSETRON INJ 2 MG/ML 2 ML VIAL IV PRN (07:19)
[2019-01-11] MEDS ORDERED: dilTIAZem HCl 5 MG/ML 5 ML VIAL IV PRN (07:19)
[2019-01-11 07:46] LABS: Hematocrit (blood only) 36.6 % (37-47)
[2019-01-11] MEDS: SOTALOL HCL 80 MG TAB PO SCH ×2 (08:30→21:07)
[2019-01-11] MEDS: NSS + 20MEQ KCL 20 MEQ/1,000 ML BAG IV SCH ×2 (08:31→17:59)
--- NOTE | 2019-01-11 09:24 | Surgery Consultation ---
Date of Consultation January 11, 2019 Assessment & Plan (1) Rectal bleed: pt is a 73 year-old female who was admitted to hospital for constipation with rectal bleeding, I got a call for consult rectal bleeding, no active rectal bleeding now IMP: constipation, rectal bleeding, external hemorrhoid Plan, D/w Dr. Velazquez, recommend: miralax 17 gm once a day, full liquid now then advance diet, resume pradaxa today follow up up me in 1 week, possible hemorrhoidectomy for out-patient procedure. [phone] sign off today, please call if any change or questions, pt agrees with the plan, I answered all questions. thanks, History of Present Illness Attending Physician: Maisha Velazquez MD pt is a 73 year-old female who was admitted to hospital for rectal bleeding due to trauma. pt had cardiac cath 2 days ago, pt developed constipation since then, pt has not passed stool for last 2 days, last night pt tried to use hand to remove stool then pt developed rectal bleeding, pt is on pradaxa for her A-fib. pt just passed some gas and small amount of stool this morning, pt denies rectal bleeding now, no abdominal pain, no nausea, no vomiting, no fever. pt had a colonoscopy 5 years ago, possible with polypectomy. Allergies Allergy/AdvReac Type Severity Reaction Status Date / Time clarithromycin [From Biaxin] Allergy Unknown Verified 01/11/19 05:07 hydrochlorothiazide Allergy Unknown Verified 01/11/19 05:07 [From Prinzide] lisinopril [From Prinzide] Allergy Unknown Verified 01/11/19 05:07 Home Medications Home Medications Medication Instructions Recorded Confirmed Type diltiazem HCl 300 mg PO QAM #0 07/11/15 01/11/19 History Osteo Bi-Flex Triple Strength 1 tab PO BID 01/07/19 01/11/19 History cholecalciferol (vitamin D3) 1,000 unit PO DAILY 01/07/19 01/11/19 History [Vitamin D3] irbesartan 300 mg PO QAM 01/07/19 01/11/19 History nitroglycerin [Nitrostat] 0.4 mg SUBLINGUAL DIRECTED 01/07/19 01/11/19 History calcium carbonate-vitamin D3 1 tab PO DAILY 01/11/19 01/11/19 History [Calcium 600 + D(3)] dabigatran etexilate [Pradaxa] 150 mg PO AMPM 01/11/19 01/11/19 History furosemide [Lasix] 60 mg PO QAM 01/11/19 01/11/19 History sotalol 120 mg PO AMPM 01/11/19 01/11/19 History Patient History Medical History Rectal bleed (Acute) Chest pain Family History Other No significant family history Social History Communication Ability: Effective Beliefs That Will Affect Care: None Current Living Situation: Spouse Feels Safe at Home: Yes Smoking Status: Never smoker Second Hand Exposure: No Hx Alcohol Use: No Hx Substance Use: No Review of Systems Review of Systems: All systems reviewed & are unremarkable except as noted in HPI & below Constitutional: as per Subjective / HPI Ear, Nose, Mouth, Throat: as per Subjective / HPI Respiratory: pulmonary hypertension Cardiovascular: Additional Comments: A-fib, chest pain, CAD Gastrointestinal: + blood in stools constipation Genitourinary: as per Subjective / HPI Neurologic: as per Subjective / HPI Psychiatric: as per Subjective / HPI Endocrine: as per Subjective / HPI Hematologic / Lymphatic: as per Subjective / HPI Physical Exam Constitutional: WD/WN, vitals as above well developed and well nourished ENMT: external ear and nose normal, oropharynx normal Neck: trachea midline, no thyromegaly normal visual inspection Respiratory: normal respiratory effort, lungs clear to auscultation normal respiratory effort Cardiovascular: RRR, no murmur, no edema Rate/Rhythm: + irregularly irregular Gastrointestinal (Abdomen): normal bowel sounds, soft, nontender, no hepatosplenomegaly rectal exam-external hemorrhoid, no active bleeding, no tenderness, no rectal wall mass. Neurologic: awake Psychiatric: Orientation: alert and oriented x 3 Results & Data Vital Signs (Past 12 Hours) Vital Signs Temp Pulse Pulse Resp BP BP Pulse Ox 01/11/19 07:08 36.6 C 92 H 18 128/90 95 01/11/19 06:20 122/99 01/11/19 05:52 90 18 143/85 H 94 01/11/19 03:57 83 18 115/100 93 01/11/19 02:20 36.9 C 94 H 16 148/84 H 94 Laboratory Results Abnormal lab results 01/11/19 01/11/19 01/11/19 Range/Units 03:50 03:50 04:14 WBC 13.66 H (4.8-10.8) K/uL Hct (37-47) % Immature Gran # (Auto) 0.07 H (0.00-0.02) K/uL Neut # (Auto) 11.83 H (1.4-6.5) K/uL Lymph # (Auto) 0.98 L (1.2-3.4) K/uL [place] # (Auto) 0.65 H (0.11-0.59) K/uL APTT 37.4 H (21.0-31.0) Seconds BUN/Creatinine Ratio 24.0 H (10-20) Glucose 123 H (70-99) mg/dl Calcium 8.4 L (8.5-10.1) mg/dl 01/11/19 Range/Units 07:29 WBC (4.8-10.8) K/uL Hct 36.6 L (37-47) % Immature Gran # (Auto) (0.00-0.02) K/uL Neut # (Auto) (1.4-6.5) K/uL Lymph # (Auto) (1.2-3.4) K/uL [place] # (Auto) (0.11-0.59) K/uL APTT (21.0-31.0) Seconds BUN/Creatinine Ratio (10-20) Glucose (70-99) mg/dl Calcium (8.5-10.1) mg/dl
[2019-01-11] MEDS: POLYETHYLENE (MIRALAX) 17 GM PACK PO SCH (10:26)
[2019-01-11 14:06] LABS: Hematocrit (blood only) 34.1 % (37-47); Hemoglobin 11.1 g/dL (12.0-16.0)
--- NOTE | 2019-01-11 14:42 | History & Physical Bridge Note ---
Date of Service January 11, 2019 History & Physical Bridge Note I have examined the patient, reviewed the History & Physical and in the interval since the performance of the History & Physical I have noted the following changes of clinical significance: Patient has had 2 more small bowel movements with a few drops of bright red blood since admission. Seen by the surgeon and I discussed the case with the surgeon after he saw her. No indication for surgical procedure at this time. Heavy bleeding seems to have stopped. He recommended continuing with bowel regimen. I will hold off on restarting her Pradaxa at this time due to continued small amounts of bright red blood per rectum. Hemoglobin has dropped slightly to 11.1 but could also be some portion of hemodilution given IV fluids. -We will advance diet to regular by this evening We will continue to hold home BP meds unless blood pressure becomes s ignificantly elevated Vitals reviewed Gen: AAOx3, NAD, obese HEENT: Anicteric sclerae, EOMI CV: RRR no mgr nl S1S2 Pulm: CTAB no wcr Abd: +BS soft NT ND no masses or hernias Ext: No edema, 2+ DP pulses Skin: No rashes, warm/dry Neuro: Full strength throughout
[2019-01-11 19:30] LABS: Hemoglobin 10.2 g/dL (12.0-16.0)
[2019-01-12 01:29] LABS: Basophils # (auto) 0.02 K/uL (0-0.2); Basophils % (auto) 0.3 %; Eosinophils # (auto) 0.28 K/uL (0-0.5); Eosinophils % (auto) 3.8 %; Hematocrit (blood only) 29.6 % (37-47); Hemoglobin 9.7 g/dL (12.0-16.0); Immature Granulocytes # (auto) 0.11 K/uL (0.00-0.02); Immature Granulocytes % (auto) 1.5 %; Lymphocytes # (auto) 1.83 K/uL (1.2-3.4); Lymphocytes % (auto) 24.9 %; Mean Corpuscular Hgb Conc 32.8 g/dL (32-36); Mean Platelet Volume 9.4 fL (7.4-10.4); Monocytes # (auto) 0.43 K/uL (0.11-0.59); Monocytes % (auto) 5.9 %; Neutrophils # (auto) 4.68 K/uL (1.4-6.5); Neutrophils % (auto) 63.6 %; Platelet Count 221 K/uL (130-400); RDW Coefficient of Variation 13.5 % (11.5-14.5); RDW Standard Deviation 42.4 fL (36.4-46.3); Red Blood Count 3.44 M/uL (4.2-5.4); White Blood Count 7.35 K/uL (4.8-10.8)
[2019-01-12 01:40] LABS: INR 1.1 (0.9-1.1); Partial Thromboplastin Ratio 1.1; Partial Thromboplastin Time 28.6 Seconds (21.0-31.0); Prothrombin Time 10.8 Seconds (9.0-12.0)
[2019-01-12 01:52] LABS: Albumin Level 2.9 gm/dl (3.4-5.0); BUN Creatinine Ratio 24.4 (10-20); Bilirubin,Total 0.7 mg/dl (0.2-1); Calcium 7.6 mg/dl (8.5-10.1); Est GFR (African American) 116.9; Est GFR (Non-African American) 100.9; Potassium 3.9 mmol/L (3.5-5.1); Total Protein 5.9 gm/dl (6.4-8.2)
[2019-01-12] MEDS: NSS + 20MEQ KCL 20 MEQ/1,000 ML BAG IV SCH (04:11)
[2019-01-12] MEDS: SOTALOL HCL 80 MG TAB PO SCH ×2 (07:50→20:39)
[2019-01-12] MEDS: POLYETHYLENE (MIRALAX) 17 GM PACK PO SCH (07:51)
[2019-01-12] MEDS: CHOLECALCIFEROL 1,000 UNITS TAB PO SCH (08:23)
[2019-01-12] MEDS: IRBESARTAN 150 MG TAB PO SCH (08:23)
[2019-01-12] MEDS: dilTIAZem HCL 300 MG CAPCR PO SCH (08:23)
[2019-01-12] MEDS: CALCIUM 600MG + VIT D 400 IU TAB PO SCH (08:24)
[2019-01-12 12:28] LABS: Hematocrit (blood only) 33.6 % (37-47); Hemoglobin 11.1 g/dL (12.0-16.0); Mean Corpuscular Volume 84.8 fL (80-100); Mean Platelet Volume 9.6 fL (7.4-10.4); Platelet Count 261 K/uL (130-400); RDW Coefficient of Variation 13.3 % (11.5-14.5); RDW Standard Deviation 40.9 fL (36.4-46.3); Red Blood Count 3.96 M/uL (4.2-5.4); White Blood Count 8.57 K/uL (4.8-10.8)
[2019-01-12] MEDS ORDERED: ALUMINUM/MAGNESIUM SUSP 18 ML, LIDOCAINE HCL VISCOUS 2% 6 ML, BARCODE IDENTIFIER 1 EA PO ONE (12:33)
--- NOTE | 2019-01-12 12:35 | Hospitalist Progress Note ---
Date of Service January 12, 2019 Assessment & Plan (1) Rectal bleed: Constipation/persistent rectal bleeding status post manual disimpaction by patient/on Pradaxa- With Acute blood loss anemia--> hgb dropped from 12.3 to 9.7 this AM--> repeat hgb then up to 11.1 without intervention-could be some lab error but overall hemodynamically stable, no further gross bleeding -seen by Surgery and felt no urgent surgical intervention needed, can f/u as outpt for hemorrhoidectomy Did received one dose of DDAVP IV x1. -no need for endoscopy at this point -continue to hold Pradaxa but can likely restart tomorrow if Hgb remains stable -add on Anusol for hemorrhoid pain -follow CBC in AM (2) External hemorrhoid: as above, with bleeding -add Anusol (3) Constipation: Now resolved with manual disimpaction in ER and continued Miralax use here -continue daily Miralax (4) Anticoagulant long-term use: Holding Pradaxa. Given DDAVP on admission (5) CAD (coronary artery disease), [place] coronary artery: Recent cardiac catheterization did not show any need for intervention, had mild nonobstructive disease. Continue sotalol Restart irbesartan, diltiazem today for elevated BPs (6) Atrial fibrillation: Has been in NSR here -holding Pradaxa for GIB -continue sotalol for rhythm control -continue diltiazem for rate control (7) Hyperlipidemia LDL goal <70: On problem list, but not currently on medication. (8) Pulmonary hypertension: mild PHTN seen on recent RHC secondary to left sided HF -Cardio advised titrating upward on diuretics as renal function allows -restart lasix 60mg daily in AM -dcd IVFs today as is taking adequate po (9) HTN (hypertension), benign: BPs elevated today -restart home BP meds as above (10) DVT prophylaxis: SCDs, ambulation Dispo-remain on PCU overnight given drop in hgb and fatigue, but likely can dc to home tomorrow Subjective Only had some pink blood on her toilet paper after a BM today, still having BMs. Feels very fatigued today and weak. No lightheadedness. Did have a brief 2 min episode of pressure in her lower chest and epigastric region this AM which came on at rest while lying down and went away on its own. It was nonradiating, no nausea or SOB with it. Still very sore in her rectal area. Tele with NSR, rates 70s-90s Review of Systems Review of Systems: All systems reviewed & are unremarkable except as noted in HPI & below Physical Exam Constitutional: well developed and + morbidly obese (very short stature) Eyes: PERRL, conjunctivae normal, anicteric sclerae ENMT: external ear and nose normal, oropharynx normal Neck: trachea midline, no thyromegaly Respiratory: normal respiratory effort, lungs clear to auscultation Cardiovascular: RRR, no murmur, no edema Gastrointestinal (Abdomen): normal bowel sounds, soft, nontender, no hepatosplenomegaly Rectal Exam: + hemorrhoids (3 large nonthrombosed ext hemorrhoids, no active bleeding) Musculoskeletal: Extremities: extremities normal to inspection; no cyanosis and no clubbing Skin: no rashes, warm and dry Neurologic: moves all extremities and awake; no focal motor deficits Psychiatric: A+Ox3, euthymic affect Results & Data Vital Signs (Past 12 Hours) Vital Signs Temp Pulse Pulse Resp BP Pulse Ox 01/12/19 11:45 36.9 C 76 20 144/81 H 93 01/12/19 08:00 76 01/12/19 07:14 36.7 C 76 16 162/83 H 94 01/12/19 03:29 36.6 C 72 19 148/80 H 95 Laboratory Results 01/12/19 01/12/19 01/12/19 Range/Units 12:01 01:16 01:16 WBC 8.57 (4.8-10.8) K/uL RBC 3.96 L (4.2-5.4) M/uL Hgb 11.1 L (12.0-16.0) g/dL Hct 33.6 L (37-47) % MCV 84.8 (80-100) fL MCH 28.0 (25-34) pg MCHC 33.0 (32-36) g/dL RDW Std Deviation 40.9 (36.4-46.3) fL RDW Coeff of Emiliano 13.3 (11.5-14.5) % Plt Count 261 (130-400) K/uL MPV 9.6 (7.4-10.4) fL Immature Gran % (Auto) % Neut % (Auto) % Lymph % (Auto) % [place] % (Auto) % Eos % (Auto) % Baso % (Auto) % Immature Gran # (Auto) (0.00-0.02) K/uL Neut # (Auto) (1.4-6.5) K/uL Lymph # (Auto) (1.2-3.4) K/uL [place] # (Auto) (0.11-0.59) K/uL Eos # (Auto) (0-0.5) K/uL Baso # (Auto) (0-0.2) K/uL PT 10.8 (9.0-12.0) Seconds INR 1.1 (0.9-1.1) APTT 28.6 (21.0-31.0) Seconds PTT Ratio 1.1 Sodium 137 (136-145) mmol/L Potassium 3.9 (3.5-5.1) mmol/L Chloride 106 (98-107) mmol/L Carbon Dioxide 28 (21-32) mmol/L Anion Gap 3.0 (3-11) BUN 11 (7-18) mg/dl Creatinine 0.43 L (0.6-1.2) mg/dl Est Cr Clr Drug Dosing 95.0 ml/min Est GFR ( Amer) 116.9 Est GFR (Non-Af Amer) 100.9 BUN/Creatinine Ratio 24.4 H (10-20) Glucose 93 (70-99) mg/dl Calcium 7.6 L (8.5-10.1) mg/dl Total Bilirubin 0.7 (0.2-1) mg/dl AST 12 L (15-37) U/L ALT 13 (12-78) U/L Alkaline Phosphatase 63 (45-117) U/L Total Protein 5.9 L (6.4-8.2) gm/dl Albumin 2.9 L (3.4-5.0) gm/dl Globulin 3.0 (2.5-4.0) gm/dl Albumin/Globulin Ratio 1.0 (0.9-2) /18/19 Range/Units 01:16 WBC 7.35 (4.8-10.8) K/uL RBC 3.44 L (4.2-5.4) M/uL Hgb 9.7 L (12.0-16.0) g/dL Hct 29.6 L (37-47) % MCV 86.0 (80-100) fL MCH 28.2 (25-34) pg MCHC 32.8 (32-36) g/dL RDW Std Deviation 42.4 (36.4-46.3) fL RDW Coeff of Emiliano 13.5 (11.5-14.5) % Plt Count 221 (130-400) K/uL MPV 9.4 (7.4-10.4) fL Immature Gran % (Auto) 1.5 % Neut % (Auto) 63.6 % Lymph % (Auto) 24.9 % [place] % (Auto) 5.9 % Eos % (Auto) 3.8 % Baso % (Auto) 0.3 % Immature Gran # (Auto) 0.11 H (0.00-0.02) K/uL Neut # (Auto) 4.68 (1.4-6.5) K/uL Lymph # (Auto) 1.83 (1.2-3.4) K/uL [place] # (Auto) 0.43 (0.11-0.59) K/uL Eos # (Auto) 0.28 (0-0.5) K/uL Baso # (Auto) 0.02 (0-0.2) K/uL PT (9.0-12.0) Seconds INR (0.9-1.1) APTT (21.0-31.0) Seconds PTT Ratio Sodium (136-145) mmol/L Potassium (3.5-5.1) mmol/L Chloride (98-107) mmol/L Carbon Dioxide (21-32) mmol/L Anion Gap (3-11) BUN (7-18) mg/dl Creatinine (0.6-1.2) mg/dl Est Cr Clr Drug Dosing ml/min Est GFR ( Amer) Est GFR (Non-Af Amer) BUN/Creatinine Ratio (10-20) Glucose (70-99) mg/dl Calcium (8.5-10.1) mg/dl Total Bilirubin (0.2-1) mg/dl AST (15-37) U/L ALT (12-78) U/L Alkaline Phosphatase (45-117) U/L Total Protein (6.4-8.2) gm/dl Albumin (3.4-5.0) gm/dl Globulin (2.5-4.0) gm/dl Albumin/Globulin Ratio (0.9-2) PG Care Time/CCT Total # of Minutes Spent Total Time Spent with Patient: Total time spent is greater than 50% in coordi nation of care (as documented) at patient's floor/unit and/or counseling patient: (1) Constipation Constipation type: unspecified constipation type Qualified Code(s): K59.00 - Constipation, unspecified
[2019-01-12] MEDS: HYDROCORTISONE HC 2.5% CRM 30GM TUBE EXT SCH ×2 (13:35→20:41)
[2019-01-13 06:43] LABS: Basophils # (auto) 0.03 K/uL (0-0.2); Basophils % (auto) 0.5 %; Eosinophils # (auto) 0.26 K/uL (0-0.5); Eosinophils % (auto) 4.3 %; Hematocrit (blood only) 31.3 % (37-47); Hemoglobin 10.2 g/dL (12.0-16.0); Immature Granulocytes # (auto) 0.11 K/uL (0.00-0.02); Immature Granulocytes % (auto) 1.8 %; Lymphocytes % (auto) 26.7 %; Mean Corpuscular Hgb Conc 32.6 g/dL (32-36); Mean Corpuscular Volume 87.2 fL (80-100); Mean Platelet Volume 9.6 fL (7.4-10.4); Monocytes # (auto) 0.48 K/uL (0.11-0.59); Neutrophils # (auto) 3.52 K/uL (1.4-6.5); Neutrophils % (auto) 58.7 %; Platelet Count 253 K/uL (130-400); RDW Coefficient of Variation 13.5 % (11.5-14.5); RDW Standard Deviation 43.2 fL (36.4-46.3); Red Blood Count 3.59 M/uL (4.2-5.4)
[2019-01-13 07:13] LABS: BUN Creatinine Ratio 11.7 (10-20); Calcium 8.2 mg/dl (8.5-10.1); Creatinine Clr Calc Pharmacy 78.2 ml/min; Est GFR (African American) 109.9; Est GFR (Non-African American) 94.8; Potassium 3.9 mmol/L (3.5-5.1)
[2019-01-13] MEDS: POLYETHYLENE (MIRALAX) 17 GM PACK PO SCH (08:04)
[2019-01-13] MEDS: CHOLECALCIFEROL 1,000 UNITS TAB PO SCH (08:04)
[2019-01-13] MEDS: SOTALOL HCL 80 MG TAB PO SCH ×2 (08:04→21:50)
[2019-01-13] MEDS: FUROSEMIDE 40 MG TAB PO SCH (08:05)
[2019-01-13] MEDS: IRBESARTAN 150 MG TAB PO SCH (08:05)
[2019-01-13] MEDS: CALCIUM 600MG + VIT D 400 IU TAB PO SCH (08:05)
[2019-01-13] MEDS: dilTIAZem HCL 300 MG CAPCR PO SCH (08:05)
[2019-01-13] MEDS: HYDROCORTISONE HC 2.5% CRM 30GM TUBE EXT SCH ×2 (08:08→21:39)
--- NOTE | 2019-01-13 12:31 | Hospitalist Progress Note ---
Date of Service January 13, 2019 Assessment & Plan (1) Rectal bleed: Constipation/persistent rectal bleeding status post manual disimpaction by patient/on Pradaxa- With Acute blood loss anemia--> hgb dropped from 12.3 to 10 since admission- remains hemodynamically stable, with continued bright red blood per rectum as of this morning -seen by Surgery and felt no urgent surgical intervention needed, can f/u as outpt for hemorrhoidectomy Did received one dose of DDAVP IV x1. Given that she was constipated and had digital trauma prior to admission, there is possibility she could have a stercoral colitis or ulcer in the rectum causing bleeding at this point -Consulted GI today-appreciate consultation-plan for colonoscopy tomorrow -continue to hold Pradaxa -Continue Anusol for hemorrhoid pain -follow CBC in AM (2) External hemorrhoid: as above, with bleeding -add Anusol (3) Constipation: Now resolved with manual disimpaction in ER and continued Miralax use here -continue daily Miralax And doing bowel prep tonight (4) Anticoagulant long-term use: Holding Pradaxa. Given DDAVP on admission (5) CAD (coronary artery disease), [place] coronary artery: Recent cardiac catheterization did not show any need for intervention, had mild nonobstructive disease. Continue sotalol -Continue irbesartan, diltiazem (6) Atrial fibrillation: Remains in NSR here -Continue holding Pradaxa for GIB -continue sotalol for rhythm control -continue diltiazem for rate control (7) Hyperlipidemia LDL goal <70: On problem list, but not currently on medication. (8) Pulmonary hypertension: mild PHTN seen on recent RHC secondary to left sided HF -Cardio advised titrating upward on diuretics as renal function allows -Continue Lasix 60mg daily in AM (9) HTN (hypertension), benign: BPs elevated but improved from previous since restarting home blood pressure meds -Continue home diltiazem, furosemide, irbesartan (10) DVT prophylaxis: SCDs, ambulation, no chemical means due to ongoing rectal bleeding Dispo-stable for transfer to medical floor, plan for colonoscopy tomorrow Subjective Had BRBPR at 0300 quite a bit as per RN. Did not have a bowel movement so far today. Has some crampy lower abdominal pain. Is also complaining of feeling she has to urinate but not much urine coming out, however that did then resolve before I saw her. She denies any further chest pain or shortness of breath. Telemetry with sinus rhythm with rates in the 60s to 80s I discussed the case with GI today Review of Systems Review of Systems: All systems reviewed & are unremarkable except as noted in HPI & below Physical Exam Constitutional: well developed and + morbidly obese (very short stature) Eyes: PERRL, conjunctivae normal, anicteric sclerae ENMT: external ear and nose normal, oropharynx normal Neck: trachea midline, no thyromegaly Respiratory: normal respiratory effort, lungs clear to auscultation Cardiovascular: RRR, no murmur, no edema Gastrointestinal (Abdomen): normal bowel sounds, soft, nontender, no hepatosplenomegaly Musculoskeletal: Extremities: extremities normal to inspection; no cyanosis and no clubbing Skin: no rashes, warm and dry Neurologic: moves all extremities and awake; no focal motor deficits Psychiatric: A+Ox3, euthymic affect Results & Data Vital Signs (Past 12 Hours) Vital Signs Temp Pulse Pulse Resp BP BP Pulse Ox 01/13/19 08:00 58 L 01/13/19 07:08 36.7 C 66 20 156/82 H 94 01/13/19 04:01 37.0 C 67 19 139/86 95 Laboratory Results 01/13/19 01/13/19 01/13/19 Range/Units 12:19 06:07 06:07 WBC 6.00 (4.8-10.8) K/uL RBC 3.59 L (4.2-5.4) M/uL Hgb 10.2 L (12.0-16.0) g/dL Hct 31.3 L (37-47) % MCV 87.2 (80-100) fL MCH 28.4 (25-34) pg MCHC 32.6 (32-36) g/dL RDW Std Deviation 43.2 (36.4-46.3) fL RDW Coeff of Emiliano 13.5 (11.5-14.5) % Plt Count 253 (130-400) K/uL MPV 9.6 (7.4-10.4) fL Immature Gran % (Auto) 1.8 % Neut % (Auto) 58.7 % Lymph % (Auto) 26.7 % [place] % (Auto) 8.0 % Eos % (Auto) 4.3 % Baso % (Auto) 0.5 % Immature Gran # (Auto) 0.11 H (0.00-0.02) K/uL Neut # (Auto) 3.52 (1.4-6.5) K/uL Lymph # (Auto) 1.60 (1.2-3.4) K/uL [place] # (Auto) 0.48 (0.11-0.59) K/uL Eos # (Auto) 0.26 (0-0.5) K/uL Baso # (Auto) 0.03 (0-0.2) K/uL Sodium 140 (136-145) mmol/L Potassium 3.9 (3.5-5.1) mmol/L Chloride 109 H (98-107) mmol/L Carbon Dioxide 27 (21-32) mmol/L Anion Gap 4.0 (3-11) BUN 6 L D (7-18) mg/dl Creatinine 0.52 L (0.6-1.2) mg/dl Est Cr Clr Drug Dosing 78.2 ml/min Est GFR ( Amer) 109.9 Est GFR (Non-Af Amer) 94.8 BUN/Creatinine Ratio 11.7 (10-20) Glucose 94 (70-99) mg/dl Calcium 8.2 L (8.5-10.1) mg/dl Urine Color Yellow Urine Appearance Clear (Clear) Urine pH 5.0 (4.5-7.5) Ur Specific [place] 1.012 (1.000-1.030) Urine Protein Negative (Negative) Urine Glucose (UA) Negative (Negative) Urine Ketones Negative (Negative) Urine Blood Negative (Negative) Urine Nitrite Negative (Negative) Urine Bilirubin Negative (Negative) Urine Urobilinogen Negative (Negative) Ur Leukocyte Esterase Trace H (Negative) Urine WBC (Auto) 1-5 (0-5) /hpf Urine RBC (Auto) 0-4 (0-4) /hpf U Hyaline Cast (Auto) 1-5 (0-5) /lpf U Epithel Cells (Auto) 5-10 H (0-5) /lpf Urine Bacteria (Auto) 4+ H (Negative) PG Care Time/CCT Total # of Minutes Spent Total Time Spent with Patient: Total time spent is greater than 50% in coordination of care (as documented) at patient's floor/unit and/or counseling patient: (1) Constipation Constipation type: unspecified constipation type Qualified Code(s): K59.00 - Constipation, unspecified
[2019-01-13 12:57] LABS: Appearance Urine Clear (Clear); Bacteria Urine Automated 4+ (Negative); Bilirubin Urine Negative (Negative); Blood Urine Negative (Negative); Color Urine Yellow; Glucose Urine UA Negative (Negative); Ketones Urine Negative (Negative); Leukocyte Esterase Urine Trace (Negative); Nitrite Urine Negative (Negative); Protein Urine Negative (Negative); RBC Urine Automated 0-4 /hpf (0-4); Specific Gravity Urine 1.012 (1.000-1.030); Urobilinogen Urine Negative (Negative)
--- NOTE | 2019-01-13 14:57 | Gastrointestinal Consultation ---
Date of Consultation January 13, 2019 Assessment & Plan (1) Rectal bleed: This is c/w lower GI bleed as brown stool seen on rectal. Recommend colonoscopy tomorrow with DR Link to assess for hemorrhoids and other pathology which can be causiing rectal bleeding. Proc and risks explained to pat royal and son which include but not limited to med reaction, bleeding, perforation, aspiraiton, and missed lesions. acute blood loss anemia--follow and transfuse prn hx of colon polyps--colo as above. I am going off service tomorrow 01/[address] Link is assuming GI then. History of Present Illness Reason for Consultation: GI bleeding Requesting Physician: DR Maisha Velazquez Attending Physician: Maisha Velazquez MD History of Present Illness cc rectal bleeding HPI Son with patient for H and P. Pt normally moves her bowels 2-3 times daily. She states was constipated with no bm for 2 days post cardiac cath. She presented to ER wiht rectal bleeeding after manual disimpaction and has continued to bleed off and on since then. Rectal per ER brown stool but oozing heber blood and external hemorroids. Rectal per surgery ext hemorroids, no mass. Surgery recommended outptu hemorrhoidectomy. Hgb 12.3 on admit stable at 10.2 today. No abd pain. Some anal pain. Pt states colo in [place] about 5 years ago wiht polyps removed and recommendatiion for repeat colo in 4 years. She is on Pradaxa for afib but none for 3 days since bleeding started. She states last blood with wiping this am. KUB moderate constipation. Allergies Allergy/AdvReac Type Severity Reaction Status Date / Time clarithromycin [From Biaxin] Allergy Unknown Verified 01/11/19 05:07 hydrochlorothiazide Allergy Unknown Verified 01/11/19 05:07 [From Prinzide] lisinopril [From Prinzide] Allergy Unknown Verified 01/11/19 05:07 Home Medications Home Medications Medication Instructions Recorded Confirmed Type diltiazem HCl 300 mg PO QAM #0 07/11/15 01/11/19 History Osteo Bi-Flex Triple Strength 1 tab PO BID 01/07/19 01/11/19 History cholecalciferol (vitamin D3) 1,000 unit PO DAILY 01/07/19 01/11/19 History [Vitamin D3] irbesartan 300 mg PO QAM 01/07/19 01/11/19 History nitroglycerin [Nitrostat] 0.4 mg SUBLINGUAL DIRECTED 01/07/19 01/11/19 History calcium carbonate-vitamin D3 1 tab PO DAILY 01/11/19 01/11/19 History [Calcium 600 + D(3)] dabigatran etexilate [Pradaxa] 150 mg PO AMPM 01/11/19 01/11/19 History furosemide [Lasix] 60 mg PO QAM 01/11/19 01/11/19 History sotalol 120 mg PO AMPM 01/11/19 01/11/19 History Patient History Medical History Rectal bleed (Acute) Chest pain Family History Other No significant family history Social History Communication Ability: Effective 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 Beliefs That Will Affect Care: None marital status: Current Living Situation: Spouse Other Information That Helps Us Care for You: No Feels Safe at Home: Yes Safety Concerns: Feels Safe At This Time Smoking Status: Never smoker Do You Dip or Chew Tobacco: No Second Hand Exposure: No Tobacco Cessation Education Requested by Patient: No Hx Alcohol Use: No Hx Substance Use: No Review of Systems Review of Systems: All systems reviewed & are unremarkable except as noted in HPI & below Physical Exam Constitutional: WD/WN, vitals as above Eyes: PERRL, conjunctivae normal, anicteric sclerae ENMT: external ear and nose normal, oropharynx normal Neck: normal visual inspection and trachea midline Respiratory: normal respiratory effort, lungs clear to auscultation Cardiovascular: irregularly irregular heart rate, No obvious murmur Gastrointestinal (Abdomen): normal bowel sounds, soft, nontender, no hepatosplenomegaly Neurologic: PERRL, EOMI, accommodation nl, no face palsy, no dysarthria Psychiatric: A+Ox3, euthymic affect Results & Data Vital Signs (Past 12 Hours) Vital Signs Temp Pulse Pulse Pulse Resp BP BP 01/13/19 12:00 36.7 C 73 18 131/87 01/13/19 08:00 58 L 01/13/19 07:08 36.7 C 66 20 156/82 H 01/13/19 04:01 37.0 C 67 19 139/86 Pulse Ox 01/13/19 12:00 96 01/13/19 08:00 01/13/19 07:08 94 01/13/19 04:01 95
[2019-01-13] MEDS ORDERED: POLYETHYLENE GLYCOL 3350 238 GM BTL PO SCH (15:00)
[2019-01-14 07:05] LABS: Basophils # (auto) 0.02 K/uL (0-0.2); Basophils % (auto) 0.3 %; Eosinophils # (auto) 0.27 K/uL (0-0.5); Eosinophils % (auto) 4.4 %; Hematocrit (blood only) 31.7 % (37-47); Hemoglobin 10.3 g/dL (12.0-16.0); Immature Granulocytes # (auto) 0.07 K/uL (0.00-0.02); Immature Granulocytes % (auto) 1.2 %; Lymphocytes # (auto) 1.63 K/uL (1.2-3.4); Lymphocytes % (auto) 26.9 %; Mean Corpuscular Hgb Conc 32.5 g/dL (32-36); Mean Corpuscular Volume 86.4 fL (80-100); Mean Platelet Volume 9.7 fL (7.4-10.4); Monocytes # (auto) 0.47 K/uL (0.11-0.59); Monocytes % (auto) 7.7 %; Neutrophils # (auto) 3.61 K/uL (1.4-6.5); Neutrophils % (auto) 59.5 %; Platelet Count 265 K/uL (130-400); RDW Coefficient of Variation 13.7 % (11.5-14.5); Red Blood Count 3.67 M/uL (4.2-5.4); White Blood Count 6.07 K/uL (4.8-10.8)
[2019-01-14] MEDS: dilTIAZem HCL 300 MG CAPCR PO SCH (07:24)
[2019-01-14] MEDS: FUROSEMIDE 40 MG TAB PO SCH (07:24)
[2019-01-14] MEDS: CHOLECALCIFEROL 1,000 UNITS TAB PO SCH (07:24)
[2019-01-14] MEDS: IRBESARTAN 150 MG TAB PO SCH (07:24)
[2019-01-14] MEDS: SOTALOL HCL 80 MG TAB PO SCH ×2 (07:24→20:45)
[2019-01-14] MEDS: CALCIUM 600MG + VIT D 400 IU TAB PO SCH (07:24)
[2019-01-14] MEDS: HYDROCORTISONE HC 2.5% CRM 30GM TUBE EXT SCH ×2 (07:25→20:47)
[2019-01-14] MEDS: POLYETHYLENE (MIRALAX) 17 GM PACK PO SCH (07:26)
[2019-01-14 07:35] LABS: BUN Creatinine Ratio 13.9 (10-20); Calcium 8.9 mg/dl (8.5-10.1); Creatinine Clr Calc Pharmacy 75.3 ml/min; Est GFR (African American) 108.5; Est GFR (Non-African American) 93.6; Potassium 3.3 mmol/L (3.5-5.1)
[2019-01-14 07:39] LABS: Albumin Globulin Ratio 0.9 (0.9-2); Bilirubin,Total 0.4 mg/dl (0.2-1); Globulin 3.3 gm/dl (2.5-4.0); Total Protein 6.3 gm/dl (6.4-8.2)
--- NOTE | 2019-01-14 09:26 | Anesthesiology Consultation ---
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 Consults Requested none History Surgery Operation Date: 01/14/19 08:30 Proposed Procedures p Colonoscopy Dr Nikolay Link Height/Weight Height: 4 ft 6 in Weight: 80.9 kg Allergies Allergy/AdvReac Type Severity Reaction Status Date / Time clarithromycin [From Biaxin] Allergy Unknown Verified 01/11/19 05:07 hydrochlorothiazide Allergy Unknown Verified 01/11/19 05:07 [From Prinzide] lisinopril [From Prinzide] Allergy Unknown Verified 01/11/19 05:07 Medications Home Medications Medication Instructions Recorded Confirmed Last Taken diltiazem HCl 300 mg PO QAM #0 07/11/15 01/11/19 01/10/19 Osteo Bi-Flex Triple Strength 1 tab PO BID 01/07/19 01/11/19 01/10/19 cholecalciferol (vitamin D3) 1,000 unit PO DAILY 01/07/19 01/11/19 01/10/19 [Vitamin D3] irbesartan 300 mg PO QAM 01/07/19 01/11/19 01/10/19 nitroglycerin [Nitrostat] 0.4 mg SUBLINGUAL DIRECTED 01/07/19 01/11/19 Unknown calcium carbonate-vitamin D3 1 tab PO DAILY 01/11/19 01/11/19 01/10/19 [Calcium 600 + D(3)] dabigatran etexilate [Pradaxa] 150 mg PO AMPM 01/11/19 01/11/19 01/10/19 furosemide [Lasix] 60 mg PO QAM 01/11/19 01/11/19 01/10/19 sotalol 120 mg PO AMPM 01/11/19 01/11/19 01/10/19 Active Medications Generic Name Dose Route Start Last Admin Trade Name Freq PRN Reason Stop Dose Admin Diltiazem HCl 300 mg 01/12/19 09:00 01/14/19 07:24 Cardizem Cd PO 02/11/19 08:59 300 mg QAM JESÚS Administration Furosemide 60 mg 01/13/19 09:00 01/14/19 07:24 Lasix PO 02/12/19 08:59 60 mg QAM JESÚS Administration Hydrocortisone 1 appln 01/12/19 12:45 01/14/19 07:25 Proctozone Hc 2.5% EXT 02/11/19 12:44 Not Given BID JESÚS Potassium Chloride 10 meq in 100 mls @ 100 mls/hr 01/14/19 09:11 01/14/19 09:32 K Ritesh / Wtr IV 01/14/19 11:10 100 mls/hr Q1H JESÚS Administration Irbesartan 300 mg 01/12/19 09:00 01/14/19 07:24 Avapro PO 02/11/19 08:59 300 mg QAM JESÚS Administration Multivitamins/Minerals 1 tab 01/12/19 09:00 01/14/19 07:24 Caltrate Plus PO 02/11/19 08:59 1 tab DAILY JESÚS Administration Polyethylene Glycol 17 gm 01/11/19 09:15 01/14/19 07:26 Miralax Powder Packet PO 02/10/19 09:14 Not Given DAILY JESÚS Sotalol HCl 120 mg 01/11/19 09:00 01/14/19 07:24 Betapace PO 02/10/19 08:59 120 mg BID JESÚS Administration Vitamin D 1,000 units 01/12/19 09:00 01/14/19 07:24 Vitamin D3 PO 02/11/19 08:59 1,000 units DAILY JESÚS Administration Past Medical History Medical History Rectal bleed (Acute) Chest pain Past Family History Family History Other No significant family history Social History Smoking Status: Never smoker Do You Dip or Chew Tobacco: No Hx Alcohol Use: No Hx Substance Use: No substance use type: does not use Physical Exam Vital Signs Last Vital Signs Temp 36.6 C 01/14/19 07:15 Pulse 75 01/14/19 07:15 Resp 16 01/14/19 07:15 BP 129/78 01/14/19 07:15 Pulse Ox 94 01/14/19 07:15 Testing Laboratory Results 01/14/19 06:43 01/14/19 06:43 PT 10.8 Seconds (9.0-12.0) 01/12/19 01:16 INR 1.1 (0.9-1.1) 01/12/19 01:16 APTT 28.6 Seconds (21.0-31.0) 01/12/19 01:16 Urine Color Yellow 01/13/19 12:19 Urine Appearance Clear (Clear) 01/13/19 12:19 Urine pH 5.0 (4.5-7.5) 01/13/19 12:19 Ur Specific [place] 1.012 (1.000-1.030) 01/13/19 12:19 Urine Protein Negative (Negative) 01/13/19 12:19 Urine Glucose (UA) Negative (Negative) 01/13/19 12:19 Urine Ketones Negative (Negative) 01/13/19 12:19 Urine Nitrite Negative (Negative) 01/13/19 12:19 Ur Leukocyte Esterase Trace (Negative) H 01/13/19 12:19 Urine WBC (Auto) 1-5 /hpf (0-5) 01/13/19 12:19 Urine RBC (Auto) 0-4 /hpf (0-4) 01/13/19 12:19 U Hyaline Cast (Auto) 1-5 /lpf (0-5) 01/13/19 12:19 U Epithel Cells (Auto) 5-10 /lpf (0-5) H 01/13/19 12:19 Urine Bacteria (Auto) 4+ (Negative) H 01/13/19 12:19 Cardiac Catheterization Date: 01/08/19 Impression: 1. Mild nonobstructive CAD. 2. Elevated filling pressures. 3. Mild pulmonary hypertension, likely secondary to left heart failure. 4. No aortic stenosis. 5. Mildly reduced cardiac output.
[2019-01-14] MEDS: POTASSIUM CHLORIDE / WTR 10 MEQ/100 ML PLCT IV SCH ×2 (09:32→10:45)
[2019-01-14] MEDS ORDERED: LIDOCAINE HCL 2% 2 ML VIAL/AMP(20MG/ML) INFIL ONE (13:57)
[2019-01-14] MEDS ORDERED: PROPOFOL IV EMULSION 10 MG/ML 20 ML VIAL IV ONE (13:57)
[2019-01-14] MEDS ORDERED: SODIUM CHLORIDE 0.9% 1000ML 1,000 ML IV SCH (14:30)
--- NOTE | 2019-01-14 14:31 | History & Physical Report ---
Date of Service January 14, 2019 History of Present Illness Chief Complaint: Rectal bleeding Primary Care Provider: Adan Joshua MD For colonoscopy Allergies Allergy/AdvReac Type Severity Reaction Status Date / Time clarithromycin [From Biaxin] Allergy Unknown Verified 01/14/19 13:30 hydrochlorothiazide Allergy Unknown Verified 01/14/19 13:30 [From Prinzide] lisinopril [From Prinzide] Allergy Unknown Verified 01/14/19 13:30 Home Medications Home Medications Medication Instructions Recorded Confirmed Type diltiazem HCl 300 mg PO QAM #0 07/11/15 01/11/19 History Osteo Bi-Flex Triple Strength 1 tab PO BID 01/07/19 01/11/19 History cholecalciferol (vitamin D3) 1,000 unit PO DAILY 01/07/19 01/11/19 History [Vitamin D3] irbesartan 300 mg PO QAM 01/07/19 01/11/19 History nitroglycerin [Nitrostat] 0.4 mg SUBLINGUAL DIRECTED 01/07/19 01/11/19 History calcium carbonate-vitamin D3 1 tab PO DAILY 01/11/19 01/11/19 History [Calcium 600 + D(3)] dabigatran etexilate [Pradaxa] 150 mg PO AMPM 01/11/19 01/11/19 History furosemide [Lasix] 60 mg PO QAM 01/11/19 01/11/19 History sotalol 120 mg PO AMPM 01/11/19 01/11/19 History Past Med/Surg History Medical History Rectal bleed (Acute) Chest pain Family History Other No significant family history Social History Communication Ability: Effective 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 Beliefs That Will Affect Care: None marital status: Current Living Situation: Spouse Other Information That Helps Us Care for You: No Feels Safe at Home: Yes Safety Concerns: Feels Safe At This Time Smoking Status: Never smoker Do You Dip or Chew Tobacco: No Second Hand Exposure: No Tobacco Cessation Education Requested by Patient: No Hx Alcohol Use: No Hx Substance Use: No Physical Exam Constitutional: + obese Respiratory: normal respiratory effort Cardiovascular: Rate/Rhythm: regular rate and regular rhythm Gastrointestinal (Abdomen): Percussion/Palpation: abdomen soft Results & Data Vital Signs (Past 12 Hours) Vital Signs Temp Pulse Pulse Resp BP BP Pulse Ox 01/14/19 13:32 36.5 C 69 16 150/95 H 93 01/14/19 07:15 36.6 C 75 16 129/78 94 01/14/19 04:00 75 143/87 H Code Status & VTE Plan VTE Prophylaxis Plan VTE Prophylaxis will be ordered: Yes
--- NOTE | 2019-01-14 14:56 | GI REPORT ---
Patient Name: Lakia Richardson Procedure Date: 01/14/2019 2:36 PM Date of : 1945 Admit Type: Inpatient Age: 73 Gender: Female Attending MD: Dennis Link MD Procedure: Colonoscopy Providers: Dennis Link MD Referring MD: Maisha Velazquez Md Indications: Rectal bleeding Medicines: Propofol total dose 120 mg IV Complications: No immediate complications. Estimated Blood Loss: Estimated blood loss: none. Procedure: Pre-Anesthesia Assessment: - Prior to the procedure, a History and Physical was performed, and patient medications, allergies and sensitivities were reviewed. The patient's tolerance of previous anesthesia was reviewed. - The risks and benefits of the procedure and the sedation options and risks were discussed with the patient. All questions were answered and informed consent was obtained. After I obtained informed consent, the scope was passed under direct vision. Throughout the procedure, the patient's blood pressure, pulse, and oxygen saturations were monitored continuously. The scope was introduced through the anus and advanced to the cecum, identified by appendiceal orifice and ileocecal valve. The colonoscopy was performed without difficulty. The patient tolerated the procedure well. The quality of the bowel preparation was good. Findings: A 6 mm polyp was found in the hepatic flexure. The polyp was sessile. The polyp was removed with a hot snare. Resection and retrieval were complete. Estimated blood loss: none. Normal mucosa was found in the rectum. Non-bleeding external and internal hemorrhoids were found during endoscopy. The hemorrhoids were moderate. Impression: - One 6 mm polyp at the hepatic flexure, removed with a hot snare. Resected and retrieved. - Normal mucosa in the rectum. - Non-bleeding external and internal hemorrhoids. Recommendation: - Return patient to hospital [facility] for ongoing care. - Await pathology results. Dennis Link M.D. Dennis Link MD 01/14/2019 2:56:13 PM This report has been signed electronically. Note Initiated On: 01/14/2019 2:36 PM Number of Addenda: 0 I attest to the content of the Intraoperative Record and orders documented therein, exceptions below {[id number]}
--- NOTE | 2019-01-14 15:06 | Progress Note ---
DATE: 01/14/2019 [facility] for her rectal bleeding. The patient had the colon inspected all the way to the cecum. The prep was good. She did have a 6 mm sessile polyp at the hepatic flexure which was removed with cautery snare. The rectal mucosa was completely normal except for some internal and external hemorrhoids, no other abnormalities were found. IMPRESSION: The patient has internal and external hemorrhoids, currently not bleeding. She had a polyp that was removed with cautery. The patient will be evaluated for hemorrhoidectomy as an outpatient.
--- NOTE | 2019-01-14 15:10 | Anesthesiology Progress Note ---
Date of Service January 14, 2019 Anesthesia Post Procedure Vital Signs Vital Signs: Temp Pulse Pulse Pulse Resp BP BP 01/14/19 15:06 63 16 129/75 01/14/19 13:32 36.5 C 69 16 150/95 H 01/14/19 07:15 36.6 C 75 16 129/78 01/14/19 04:00 75 143/87 H 01/13/19 23:58 69 163/95 H 01/13/19 23:49 36.5 C 80 18 152/105 H 01/13/19 23:45 75 16 01/13/19 21:48 86 17 145/96 H 01/13/19 16:00 36.9 C 86 17 138/91 Pulse Ox 01/14/19 15:06 91 01/14/19 13:32 93 01/14/19 07:15 94 01/14/19 04:00 01/13/19 23:58 01/13/19 23:49 93 01/13/19 23:45 94 01/13/19 21:48 95 01/13/19 16:00 94 Transfer of Care Handoff Completed per policy Notes Mental Status: alert / awake / arousable and participated in evaluation Nausea / Vomiting: adequately controlled Pain: adequately controlled Airway Patency, RR, SpO2: stable & adequate BP & HR: stable & adequate Hydration State: stable & adequate Anesthetic Complications: no major complications apparent and Pt Satisfied with anesthetic care
--- NOTE | 2019-01-14 19:02 | Hospitalist Progress Note ---
Date of Service January 14, 2019 Assessment & Plan (1) Rectal bleed: Constipation/persistent rectal bleeding status post manual disimpaction by patient/on Pradaxa- With Acute blood loss anemia--> hgb dropped from 12.3 to 10 since admission- remains hemodynamically stable, and previously with continued bright red blood per rectum which is now resolved -seen by Surgery and felt no urgent surgical intervention needed, can f/u as outpt for hemorrhoidectomy Did received one dose of DDAVP IV x1 upon admission. Given that she was constipated and had digital trauma prior to admission, the possibility she could have a stercoral colitis or ulcer in the rectum causing bleeding was questioned Colonoscopy performed on 01/14 shows one polyp near the cecum and moderate internal and external hemorrhoids without bleeding -Appreciate GI consultation -Okay to restart Pradaxa -Continue Anusol for hemorrhoid pain and added hydrocortisone suppositories per rectum -follow CBC in AM -Can likely discharge to home tomorrow with plans for outpatient follow-up with surgery to discuss elective hemorrhoidectomy (2) External hemorrhoid: as above, with bleeding which is now resolved -Continue topical Anusol and add per rectal hydrocortisone as above -Advised daily MiraLAX and will add docusate 100 mg p.o. twice daily upon discharge -Encouraged high-fiber diet and avoidance of manual disimpaction in the future (3) Constipation: Now resolved with manual disimpaction in ER and continued Miralax use here -continue daily Miralax -Adding docusate as above High-fiber diet (4) Anticoagulant long-term use: Okay to restart Pradaxa now the bleeding has stopped Given DDAVP on admission (5) CAD (coronary artery disease), resighini coronary artery: Recent cardiac catheterization did not show any need for intervention, had mild nonobstructive disease. Continue sotalol -Continue irbesartan, diltiazem (6) Atrial fibrillation: Remains in NSR here -Restarting Pradaxa as above -continue sotalol for rhythm control -continue diltiazem for rate control (7) Hyperlipidemia LDL goal <70: On problem list, but not currently on medication. (8) Pulmonary hypertension: mild PHTN seen on recent RHC secondary to left sided HF -Cardio advised titrating upward on diuretics as renal function allows -Continue Lasix 60mg daily in AM -Replace potassium (9) HTN (hypertension), benign: BPs elevated but improved from previous since restarting home blood pressure meds -Continue home diltiazem, furosemide, irbesartan (10) Urinary urgency: Was having urinary urgency Urinalysis with only trace leukocyte esterase, 1-5 WBC, 4+ bacteria Follow urine culture (11) DVT prophylaxis: SCDs, ambulation, restarting Pradaxa as above Dispo-observe overnight for recurrent bleeding once restarting Pradaxa -Advance diet back to heart healthy Likely discharged home tomorrow Subjective Patient returned from colonoscopy later in the day which turned out to have 1 polyp that was removed near the cecum and hemorrhoids but no active bleeding. Patient reports no bleeding at all during her prep last evening and none so far today. Denies chest pain or shortness of breath. She has been ambulating without lightheadedness. She is tolerating a clear liquids diet so far after colonoscopy. Only with some mild lower abdominal crampy abdominal pain. Review of Systems Review of Systems: All systems reviewed & are unremarkable except as noted in HPI & below Physical Exam Constitutional: well developed and + morbidly obese (very short stature) Eyes: PERRL, conjunctivae normal, anicteric sclerae ENMT: external ear and nose normal, oropharynx normal Neck: trachea midline, no thyromegaly Respiratory: normal respiratory effort, lungs clear to auscultation Cardiovascular: RRR, no murmur, no edema Gastrointestinal (Abdomen): normal bowel sounds, soft, nontender, no hepatosplenomegaly Musculoskeletal: Extremities: extremities normal to inspection; no cyanosis and no clubbing Skin: no rashes, warm and dry Neurologic: moves all extremities and awake; no focal motor deficits Psychiatric: A+Ox3, euthymic affect Results & Data Vital Signs (Past 12 Hours) Vital Signs Temp Pulse Pulse Pulse Resp BP BP 01/14/19 18:32 36.5 C 96 H 20 119/86 01/14/19 17:43 36.7 C 73 18 126/85 01/14/19 16:36 36.5 C 70 17 132/88 01/14/19 16:17 36.5 C 66 18 134/86 01/14/19 15:37 36.5 C 66 18 135/87 01/14/19 15:28 69 16 142/84 H 01/14/19 15:13 63 16 129/90 01/14/19 15:06 63 16 129/75 01/14/19 13:32 36.5 C 69 16 150/95 H 01/14/19 07:15 36.6 C 75 16 129/78 Pulse Ox 01/14/19 18:32 95 01/14/19 17:43 91 01/14/19 16:36 94 01/14/19 16:17 94 01/14/19 15:37 94 01/14/19 15:28 93 01/14/19 15:13 92 01/14/19 15:06 91 01/14/19 13:32 93 01/14/19 07:15 94 Laboratory Results Hemoglobin stable at 10.3, potassium 3.3 Urine culture pending PG Care Time/CCT Total # of Minutes Spent Total Time Spent with Patient: Total time spent is greater than 50% in coordination of care (as documented) at patient's floor/unit and/or counseling patient: (1) Constipation Constipation type: unspecified constipation type Qualified Code(s): K59.00 - Constipation, unspecified
[2019-01-14] MEDS: DABIGATRAN ETEXILATE 75 MG CAP PO SCH (20:46)
[2019-01-14] MEDS ORDERED: HYDROCORTISONE ACETATE 25 MG SUPP PR SCH (21:00)
--- NOTE | 2019-01-15 01:31 | Progress Note ---
Date of Service January 15, 2019 Subjective RN called around 1:30am regarding pt having urinary urgency and frequency, had avoided only 10cc - pt has had constipation and had tried to manually disimpact herself per nurse Chart review: UA positive and UCx growing >100k colonies of gram neg bacilli, sensitivities pending; not on any abx; afebrile, no WBC elevation Started on macrobid 100mg BID given symptoms and above findings Results & Data Vital Signs (Past 12 Hours) Vital Signs Temp Pulse Pulse Pulse Pulse Resp BP 01/15/19 00:17 36.8 C 63 18 120/78 01/14/19 22:20 78 18 01/14/19 18:32 36.5 C 96 H 20 119/86 01/14/19 17:43 36.7 C 73 18 126/85 01/14/19 16:36 36.5 C 70 17 132/88 01/14/19 16:17 36.5 C 66 18 134/86 01/14/19 15:37 36.5 C 66 18 135/87 01/14/19 15:28 69 16 01/14/19 15:13 63 16 01/14/19 15:06 63 16 01/14/19 13:32 36.5 C 69 16 BP Pulse Ox 01/15/19 00:17 92 01/14/19 22:20 96 01/14/19 18:32 95 01/14/19 17:43 91 01/14/19 16:36 94 01/14/19 16:17 94 01/14/19 15:37 94 01/14/19 15:28 142/84 H 93 01/14/19 15:13 129/90 92 01/14/19 15:06 129/75 91 01/14/19 13:32 150/95 H 93 PG Care Time/CCT Total # of Minutes Spent Total Time Spent with Patient: Total time spent is greater than 50% in coordination of care (as documented) at patient's floor/unit and/or counseling patient: Resident Activity Tracking Resident Involvement: Resident Care Provided Care Provided: Adult Hospital Medicine
[2019-01-15 06:47] LABS: Basophils # (auto) 0.03 K/uL (0-0.2); Basophils % (auto) 0.5 %; Eosinophils # (auto) 0.26 K/uL (0-0.5); Eosinophils % (auto) 4.7 %; Hematocrit (blood only) 32.7 % (37-47); Hemoglobin 10.6 g/dL (12.0-16.0); Immature Granulocytes # (auto) 0.05 K/uL (0.00-0.02); Immature Granulocytes % (auto) 0.9 %; Lymphocytes # (auto) 1.76 K/uL (1.2-3.4); Lymphocytes % (auto) 31.6 %; Mean Corpuscular Hgb Conc 32.4 g/dL (32-36); Mean Corpuscular Volume 86.7 fL (80-100); Mean Platelet Volume 9.7 fL (7.4-10.4); Monocytes # (auto) 0.48 K/uL (0.11-0.59); Monocytes % (auto) 8.6 %; Neutrophils # (auto) 2.99 K/uL (1.4-6.5); Neutrophils % (auto) 53.7 %; Platelet Count 286 K/uL (130-400); RDW Coefficient of Variation 13.9 % (11.5-14.5); RDW Standard Deviation 43.6 fL (36.4-46.3); Red Blood Count 3.77 M/uL (4.2-5.4); White Blood Count 5.57 K/uL (4.8-10.8)
[2019-01-15 07:19] LABS: BUN Creatinine Ratio 18.4 (10-20); Calcium 8.2 mg/dl (8.5-10.1); Creatinine Clr Calc Pharmacy 68.9 ml/min; Est GFR (African American) 105.4; Est GFR (Non-African American) 90.9; Potassium 3.4 mmol/L (3.5-5.1)
[2019-01-15] MEDS: FUROSEMIDE 40 MG TAB PO SCH (07:27)
[2019-01-15] MEDS: CHOLECALCIFEROL 1,000 UNITS TAB PO SCH (07:28)
[2019-01-15] MEDS: SOTALOL HCL 80 MG TAB PO SCH (07:28)
[2019-01-15] MEDS: CALCIUM 600MG + VIT D 400 IU TAB PO SCH (07:28)
[2019-01-15] MEDS: dilTIAZem HCL 300 MG CAPCR PO SCH (07:28)
[2019-01-15] MEDS: IRBESARTAN 150 MG TAB PO SCH (07:28)
[2019-01-15] MEDS: POLYETHYLENE (MIRALAX) 17 GM PACK PO SCH (07:34)
[2019-01-15] MEDS: DABIGATRAN ETEXILATE 75 MG CAP PO SCH (07:34)
[2019-01-15] MEDS: HYDROCORTISONE HC 2.5% CRM 30GM TUBE EXT SCH (07:34)
[2019-01-15] MEDS ORDERED: DOCUSATE SODIUM 100 MG CAP PO SCH (09:00)
[2019-01-15] MEDS ORDERED: NITROFURANTOIN MONOHYDRATE 100 MG CAP PO SCH (09:00)
[2019-01-15] MEDS ORDERED: POTASSIUM CHLORIDE 20 MEQ TABCR PO STA (09:41)
--- NOTE | 2019-01-15 10:37 | Anesthesiology Progress Note ---
Date of Service January 15, 2019 Anesthesia Post Procedure Vital Signs Vital Signs: Temp Pulse Pulse Pulse Pulse Resp BP 01/15/19 07:10 36.5 C 67 16 133/82 01/15/19 03:22 36.8 C 62 16 128/74 01/15/19 00:17 36.8 C 63 18 120/78 01/14/19 22:20 78 18 01/14/19 18:32 36.5 C 96 H 20 119/86 01/14/19 17:43 36.7 C 73 18 126/85 01/14/19 16:36 36.5 C 70 17 132/88 01/14/19 16:17 36.5 C 66 18 134/86 01/14/19 15:37 36.5 C 66 18 135/87 01/14/19 15:28 69 16 01/14/19 15:13 63 16 01/14/19 15:06 63 16 01/14/19 13:32 36.5 C 69 16 BP Pulse Ox 01/15/19 07:10 95 01/15/19 03:22 96 01/15/19 00:17 92 01/14/19 22:20 96 01/14/19 18:32 95 01/14/19 17:43 91 01/14/19 16:36 94 01/14/19 16:17 94 01/14/19 15:37 94 01/14/19 15:28 142/84 H 93 01/14/19 15:13 129/90 92 01/14/19 15:06 129/75 91 01/14/19 13:32 150/95 H 93 Notes Mental Status: alert / awake / arousable and participated in evaluation Patient Amnestic to Procedure: Yes Nausea / Vomiting: adequately controlled Pain: adequately controlled Airway Patency, RR, SpO2: stable & adequate BP & HR: stable & adequate Hydration State: stable & adequate Anesthetic Complications: no major complications apparent
--- NOTE | 2019-01-15 11:04 | Discharge Summary ---
Date of Service January 15, 2019 Admission HPI Per Admitting Provider Chief Complaint: The patient presents to the emergency department after approximately 8-1/2 hours of rectal bleeding after she tried to manually disimpact herself while on the commode around 9:00 this evening. Primary Care Provider: Adan Joshua MD The patient is a 73-year-old female with a past medical history including atrial fibrillation, CAD in [place] artery, pulmonary hypertension, dyspnea, hyperlipidemia, hypertension, CHF, osteoarthritis and previous history of rectal bleeding due to hemorrhoids, presents to the emergency department with approximately 8 hours of rectal bleeding after she tried to manually disimpact herself with fingers with sharp fingernails on the edge. She continues to have bright red blood independent of bowel movements. She reports having had general surgeon Dr. Saul perform surgery on bleeding hemorrhoids a few years ago. She just underwent a cardiac catheterization 3 days ago, which was normal. She is on Pradaxa 150 mg p.o. twice daily for long-term anticoagulation for atrial fibrillation Principal Diagnosis Rectal Bleeding, Acute blood loss anemia Discharge Exam Constitutional well developed and + morbidly obese (very short stature) Eyes PERRL, conjunctivae normal, anicteric sclerae ENMT external ear and nose normal, oropharynx normal Neck trachea midline, no thyromegaly Respiratory normal respiratory effort, lungs clear to auscultation Cardiovascular RRR, no murmur, no edema Gastrointestinal (Abdomen) Inspection/Auscultation: abdomen normal to inspection and normal bowel sounds Percussion/Palpation: abdomen soft; abdomen nontender Rectal Exam: + hemorrhoids (3 nonthrombosed ext hemorrhoids much smaller than before, no bleeding) Musculoskeletal Extremities: extremities normal to inspection; no cyanosis and no clubbing Skin no rashes, warm and dry Neurologic moves all extremities and awake; no focal motor deficits Psychiatric A+Ox3, euthymic affect Discharge Data Allergies Allergy/AdvReac Type Severity Reaction Status Date / Time clarithromycin [From Biaxin] Allergy Verified 01/22/19 17:42 guaifenesin Allergy Verified 01/22/19 17:41 [From Scot-Tussin Expectorant] hydrochlorothiazide Allergy Unknown Verified 01/14/19 13:30 [From Prinzide] lisinopril [From Prinzide] Allergy Unknown Verified 01/14/19 13:30 Consultations 01/11/19 04:50 ED Decision to Admit Stat 01/11/19 07:19 Consult Case Management - Discharge Planning Routine Consult General Surgery Routine 01/13/19 10:00 Consult Gastroenterology Routine Procedures Performed Operation Date: 01/14/19 08:30 Actual Procedures p Colonoscopy Polypectomy - [facility] Link Ordered [facility] Course (1) Rectal bleed: Constipation/persistent rectal bleeding status post manual disimpaction by patient/on Pradaxa- With Acute blood loss anemia--> hgb dropped from 12.3 to 10 since admission- remains hemodynamically stable, and previously with continued bright red blood per rectum which is now resolved -seen by Surgery and felt no urgent surgical intervention needed, can f/u as outpt for hemorrhoidectomy Did received one dose of DDAVP IV x1 upon admission. Given that she was constipated and had digital trauma prior to admission, the possibility she could have a stercoral colitis or ulcer in the rectum causing bleeding was questioned Colonoscopy performed on 01/14 shows one polyp near the cecum and moderate int ernal and external hemorrhoids without bleeding -Appreciate GI consultation -restarted Pradaxa prior to discharge and had no recurrence of bleeding -Continue Anusol for hemorrhoid pain and added hydrocortisone suppositories per rectum -follow CBC as outpt -Can discharge to home today with plans for outpatient follow-up with surgery to discuss elective hemorrhoidectomy (2) External hemorrhoid: as above, with bleeding which is now resolved -Continue topical Anusol and add per rectal hydrocortisone as above -Advised daily MiraLAX and will add docusate 100 mg p.o. twice daily upon discharge -Encouraged high-fiber diet and avoidance of manual disimpaction in the future (3) Constipation: Now resolved with manual disimpaction in ER and continued Miralax use here -continue daily Miralax -Adding docusate as above High-fiber diet (4) Anticoagulant long-term use: Okay to restart Pradaxa now the bleeding has stopped Given DDAVP on admission (5) CAD (coronary artery disease), [place] coronary artery: Recent cardiac catheterization did not show any need for intervention, had mild nonobstructive disease. Continue sotalol -Continue irbesartan, diltiazem (6) Atrial fibrillation: Remains in NSR here -Restarted Pradaxa as above -continue sotalol for rhythm control -continue diltiazem for rate control (7) Hyperlipidemia LDL goal <70: On problem list, but not currently on medication. (8) Pulmonary hypertension: mild PHTN seen on recent RHC secondary to left sided HF -Cardio advised titrating upward on diuretics as renal function allows -Continue Lasix 60mg daily in AM -Replaced potassium (9) HTN (hypertension), benign: BPs elevated but improved from previous since restarting home blood pressure meds -Continue home diltiazem, furosemide, irbesartan (10) Urinary urgency: Was having urinary urgency Urinalysis with only trace leukocyte esterase, 1-5 WBC, 4+ bacteria Follow urine culture-grew Klebsiella pneumoniae on day of discharge--> was given abx x 7 day course (11) DVT prophylaxis: SCDs, ambulation, restarted Pradaxa as above Dispo-stable for dc to home Total Time Total Time Spent Total Time Spent (In Minutes): >30 min Total Time Includes: Examination of the Patient, Discharge Planning and Medication Reconciliation Discharge Plan Discharge Items Patient Disposition: Home - Self-Care Reason For Visit: RECTAL BLEEDING DUE TO TRAUMA Discharge Diagnosis: Rectal bleeding, Hemorrhoids Condition: Good Discharge Goals: Decrease discomfort, Diagnostic testing, Improve disease control, Learn about illness and Therapeutic intervention Activity: Resume your previous activity Lifting: Gradually increase as tolerated Bathing: No limitations Exercise/Sports: Gradually increase as tolerated Non-emergency contact: Primary Care Provider and Surgeon Call non-emergency contact if: you have any medication questions and your symptoms worsen Follow-up/Referrals: Adan Joshua MD [Primary Care Provider] - (Dr. Joshua's office will call you with appointment, a task was given to MD office due to scheduling.) Lexie Sweet MD [Physician] - 01/21/19 10:00 am (A follow up appt. has been made with Dr. Sweet, Gen. surgery, on January 21 at 10:00am.) Diet: Low Sodium (2gm) Diet Comment: High fiber diet Addtl Provider Instructions: Please finish out the antibiotic 6 more days for your urinary tract infection. Please have your blood count and kidney function blood work drawn on Friday-this has been ordered for you. The prescription from Dr. Peña is still at the lab and a new prescription for the complete blood count will be given to you on discharge. Please eat a high-fiber diet and continue to take MiraLAX once daily as well as a stool softener docusate twice daily to prevent constipation. Please follow-up with the general surgeon to discuss doing a hemorrhoidectomy in the future. If you have a large amount of bright red bleeding, please return to the ER. If you have small amounts of blood or blood on the toilet paper, there is no need to return to the ER for that. It is safe for you at this point to continue taking your Pradaxa twice daily. If you feel faint or lightheaded, have chest pain or shortness of breath or pass out, please return to the ER. Please follow-up with your primary care physician within 1 to 2 weeks. They should be calling you for the appointment time and date. Prescriptions: New polyethylene glycol 3350 [Miralax] 17 gram Powder In Packet 17 g PO DAILY Qty: 30 RF: 0 hydrocortisone [Proctosol HC] 2.5 % Cream With Perineal Applicator 1 applic EXT BID Qty: 28.35 RF: 0 docusate sodium 100 mg Capsule 100 mg PO BID Qty: 60 RF: 0 Changed furosemide [Lasix] 40 mg tablet 60 mg PO BID Qty: 0 RF: 0 No Action atorvastatin 80 mg tablet 80 mg PO DAILY Qty: 90 RF: 3 calcium carbonate-vitamin D3 [Calcium 600 + D(3)] 600 mg(1,500mg) -400 unit tablet 2 tab PO DAILY Qty: 180 RF: 3 diltiazem HCl 300 mg capsule,extended release 24 hr 300 mg PO QAM Qty: 90 RF: 3 irbesartan 300 mg tablet 300 mg PO QAM Qty: 90 RF: 3 nitroglycerin [Nitrostat] 0.4 mg tablet, sublingual 0.4 mg sublingual DIRECTED Qty: 20 RF: 3 omeprazole 20 mg capsule,delayed release(DR/EC) 20 mg PO DAILY Qty: 90 RF: 3 Osteo Bi-Flex Triple Strength 750 mg-644 mg- 30 mg-1 mg tablet 1 tab PO BID Qty: 180 RF: 3 Pradaxa 150 mg capsule 150 mg PO BID Qty: 180 RF: 3 sotalol 120 mg tablet 120 mg PO BID Qty: 180 RF: 3 cholecalciferol (vitamin D3) [Vitamin D3] 1,000 unit capsule 1,000 unit PO DAILY Qty: 180 RF: 3 hydrocortisone acetate [Anucort-HC] 25 mg suppository 25 mg [place] HS Qty: 12 RF: 5 potassium chloride 20 mEq tablet extended release 20 meq PO DAILY Qty: 30 RF: 5 Stand-Alone Forms: [facility] Discharge Orders: Discharge Order (Routine); Ordered 01/15/19 Ordered By: Maisha Velazquez Admission Data Admit Date/Time: 01/12/19 12:36 Attending Provider: Maisha Velazquez Admit Provider: Jimmy Chowdhury Primary Care Provider: Adan Joshua Other Providers: Sammy Stratton ; Lexie Sweet Service: Medical Other Interventions: Discharge Summary Assessment (RN) Last Done: 01/15/19 13:05 Pending Studies at Discharge: Yes (Biopsy from colonoscopy) DC Date/Time DO NOT enter until pt leaves facility: 01/15/19 14:17
== END 2019-01-15 14:17 | disposition home or self-care (01) | DRG 378 ==
LOC: ED 02:16 → 2S 02:16 → SUATTDRO 05:49 → 2S 06:38 → 3N 01-13 16:00
DX: I27.20 Pulmonary hypertension, unspecified; K59.00 Constipation, unspecified; D62 Acute posthemorrhagic anemia; Z87.19 Personal history of other diseases of the digestive system; I11.0 Hypertensive heart disease with heart failure; Z79.899 Other long term (current) drug therapy; I50.9 Heart failure, unspecified; E66.01 Morbid (severe) obesity due to excess calories; I48.91 Unspecified atrial fibrillation; I25.10 Atherosclerotic heart disease of native coronary artery without angina pectoris; K64.4 Residual hemorrhoidal skin tags; K62.5 Hemorrhage of anus and rectum; E78.5 Hyperlipidemia, unspecified; Z68.41 Body mass index [BMI] 40.0-44.9, adult; K63.5 Polyp of colon; Z79.01 Long term (current) use of anticoagulants